=== PATIENT | male | born 1945 | race Caucasian/White ===

== ENCOUNTER 2023-07-28 07:27 | Outpatient (OUT) | payer MEDICARE, SELFPAY ==
--- NOTE | 2023-07-28 07:42 | XR_ITS ---
The [address] [address] Patient Name: CHRIS HERNANDEZ MRN: [id number] date: 1945 Sex: M Assigned Patient Location: [facility] Current Patient Location: [facility] Accession/Order Number: [id number] Exam Date: 07/28/2023 09:07 Report Date: 07/28/2023 09:38 At the request of: JANETT QUINN Procedure: XR chest 2V PROCEDURE: XR chest 2V DATE: 07/28/2023 8:07 AM [employer] COMPARISONS: None. CLINICAL INDICATION: 77 years Male Preop exam FINDINGS: The cardiomediastinal silhouette and pulmonary vasculature are within normal limits. The lungs are clear. There is no evidence of pleural effusion or pneumothorax. XR/XR chest 2V IMPRESSION: Chest radiograph is within normal limits. Electronically authenticated by: SANDY OTOOLE Date: 07/28/2023 09:38
--- NOTE | 2023-07-28 08:53 | PM.PRESUREVA ---
History of Present Illness History of Present Illness Chief complaint: right eustachian tube dysfunction Narrative: Patient presents for preadmission testing. 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 He denies ear drainage, pain, sore throat, epistaxis, or any other complaints. Review of Systems ROS Narrative REVIEW OF SYSTEMS: Negative except as stated in HPI, ten or more systems reviewed. Constitutional: No fever , chills, weakness ENT: No sore throat or epistaxis Cardiovascular: No edema, chest pain, palpitations, or activity intolerance Respiratory: No shortness of breath, cough, or wheezing Musculoskeletal: No joint pain or swelling Gastrointestinal: No abdominal pain, constipation, diarrhea, or vomiting Genitourinary: No dysuria or hematuria Neurological: No numbness, tingling, weakness, or headache Psychiatric: No mood changes [facility] Medical History (Updated 07/28/23 @ 08:40 by Tuyet Soto NP) Depression ?F32.A - Depression, unspecified (ICD-10) Sleep apnea ?G47.30 - Sleep apnea, unspecified (ICD-10) Kidney stones ?N20.0 - Calculus of kidney (ICD-10) GERD (gastroesophageal reflux disease) ?K21.9 - Gastro-esophageal reflux disease without esophagitis (ICD-10) Coronary artery disease ?I25.10 - Atherosclerotic heart disease of [place] coronary artery without angina pectoris (ICD-10) High cholesterol ?E78.00 - Pure hypercholesterolemia, unspecified (ICD-10) Hypertension ?I10 - Essential (primary) hypertension (ICD-10) Tinnitus ?H93.19 - Tinnitus, unspecified ear (ICD-10) Chronic kidney disease ?N18.9 - Chronic kidney disease, unspecified (ICD-10) Spinal stenosis ?M48.00 - Spinal stenosis, site unspecified (ICD-10) Arthritis of knee ?M17.10 - Unilateral primary osteoarthritis, unspecified knee (ICD-10) Ischemic cardiomyopathy ?I25.5 - Ischemic cardiomyopathy (ICD-10) STEMI (ST elevation myocardial infarction) ?I21.3 - ST elevation (STEMI) myocardial infarction of unspecified site (ICD-10) Colon polyp ?K63.5 - Polyp of colon (ICD-10) Epididymal cyst ?N50.3 - Cyst of epididymis (ICD-10) Chronic pain ?G89.29 - Other chronic pain (ICD-10) BPH with obstruction/lower urinary tract symptoms ?N40.1 - Benign prostatic hyperplasia with lower urinary tract symptoms (ICD-10) ?N13.8 - Other obstructive and reflux uropathy (ICD-10) Ascending aorta dilation ?I77.810 - Thoracic aortic ectasia (ICD-10) Dysfunction of right eustachian tube ?H69.91 - Unspecified Eustachian tube disorder, right ear (ICD-10) S/P extracorporeal shock wave therapy ?Z98.890 - Other specified postprocedural states (ICD-10) Surgical History (Updated 07/28/23 @ 08:40 by Tuyet Soto NP) H/O local excision of skin lesion ?Z98.890 - Other specified postprocedural states (ICD-10) History of spinal surgery ?Z98.890 - Other specified postprocedural states (ICD-10) S/P epidural steroid injection ?Z92.241 - Personal history of systemic steroid therapy (ICD-10) History of vasectomy ?Z98.52 - Vasectomy status (ICD-10) History of arthroplasty of knee ?Z96.659 - Presence of unspecified artificial knee joint (ICD-10) History of arthroplasty of knee ?Z96.659 - Presence of unspecified artificial knee joint (ICD-10) History of colonoscopy ?Z98.890 - Other specified postprocedural states (ICD-10) History of tonsillectomy and adenoidectomy ?Z90.89 - Acquired absence of other organs (ICD-10) History of heart artery stent ?Z95.5 - Presence of coronary angioplasty implant and graft (ICD-10) History of cardiac catheterization ?Z98.890 - Other specified postprocedural states (ICD-10) H/O uvulectomy ?Z90.89 - Acquired absence of other organs (ICD-10) Family History (Updated 07/28/23 @ 08:40 by Tuyet Soto NP) Other Family history of heart disease Family history of myocardial infarction Family history of skin cancer Heart failure Social History (Updated 07/28/23 @ 08:28 by Tuyet Soto NP) Within the past year, how often did you have a drink containing alcohol: never Score interpretation: A score less than 4 is consistent with normal alcohol consumption. Smoking status: Former smoker Highest level of school completed/degree received: high school graduate Meds Home Medications and Allergies Home Medications Medication Instructions Recorded Confirmed Type atorvastatin 80 mg tablet 80 mg PO DAILY 07/28/23 07/28/23 History calcitriol 0.25 mcg capsule 0.25 mcg PO DAILY 07/28/23 07/28/23 History famotidine 40 mg tablet 20 mg PO QPM PRN heartburn 07/28/23 07/28/23 History fluticasone propionate 50 1 spray intranasal DAILY 07/28/23 07/28/23 History mcg/actuation nasal spray,suspension isosorbide mononitrate 30 mg 30 mg PO DAILY 07/28/23 07/28/23 History tablet,extended release 24 hr losartan 100 mg tablet 100 mg PO DAILY 07/28/23 07/28/23 History metoprolol succinate 25 mg 25 mg PO DAILY 07/28/23 07/28/23 History tablet,extended release 24 hr nitroglycerin 0.4 mg sublingual 0.4 mg sublingual Q5M 07/28/23 07/28/23 History tablet (Nitrostat) sertraline 25 mg tablet 25 mg PO DAILY 07/28/23 07/28/23 History spironolactone 25 mg tablet 25 mg PO DAILY 07/28/23 07/28/23 History ticagrelor 90 mg tablet (Brilinta) 90 mg PO Q12H 07/28/23 07/28/23 History Allergies Allergy/AdvReac Type Severity Reaction Status Date / Time Iodinated Contrast Media AdvReac kidney Verified 07/28/23 08:24 failure Exam Narrative Exam Narrative: Constitutional: Awake, alert, comfortable, well-appearing, nontoxic, interactive, vital signs as charted Head: Normocephalic, atraumatic Eyes: Conjunctiva and lids normal to inspection, pupils normal ENT: Right tympanic membrane effusion, left tympanic membrane normal, naris patent, posterior oropharynx clear, oral mucosa moist Neck: Supple, normal appearance, normal range of motion, no meningeal signs, no lymphadenopathy Respiratory: No respiratory distress, breath sounds clear Cardiovascular: Regular rate and rhythm, strong and regular heart tones Musculoskeletal: Normal gait, no swelling or edema Skin: No rashes or induration, no lesions, only visible skin inspected Neuro: No neurological deficits, normal sensation Psychiatric: Oriented ?3, normal affect Assessment and Plan Assessment and Plan (1) Dysfunction of right eustachian tube: Plan Right myringotomy and insertion of ventilation tube, T-tube, nasal endoscopy with possible biopsy scheduled with Dr. Herrera 08/09/2023.
[2023-07-28 09:23] LABS: Basophils Percent Auto 0.5 % (0.2-2.0); Eosinophils Absolute Auto 0.1 10^3/uL (0.0-0.7); Eosinophils Percent Auto 1.6 % (0.9-7.0); Hematocrit 36.3 % (42.0-54.0); Hemoglobin 12.3 g/dL (14.0-18.0); Immature Granulocytes Abs Auto 0.03 10^3/uL (0.00-0.03); Immature Granulocytes Pct Auto 0.5 % (0.0-0.5); Lymphocytes Absolute Auto 0.5 10^3/uL (1.2-3.8); Lymphocytes Percent Auto 9.1 % (20.5-60.0); Mean Corpuscular HGB Conc 33.9 g/dL (29.9-35.2); Mean Corpuscular Hemoglobin 33.8 pg (25.9-34.0); Mean Corpuscular Volume 99.7 fL (80.0-94.0); Mean Platelet Volume 10.8 fL (9.5-13.5); Monocytes Absolute Auto 0.4 10^3/uL (0.3-0.8); Monocytes Percent Auto 7.5 % (1.7-12.0); Neutrophils Absolute Auto 4.6 10^3/uL (1.4-6.5); Neutrophils Percent Auto 80.8 % (43.0-75.0); Platelet Count 129 10^3/uL (150-450); Red Blood Count 3.64 10^6/uL (4.70-6.10); Red Cell Distribution Width 13.1 % (11.0-15.0); White Blood Count 5.7 10^3/uL (4.0-11.0)
[2023-07-28 09:30] LABS: Anion Gap 10.5; BUN Creatinine Ratio 11.7; Calcium 9.6 mg/dL (8.5-10.1); Carbon Dioxide 30.2 mmol/L (21.0-32.0); Chloride 105 mmol/L (98-107); Estimated GFR (African America 45 (>=60); Estimated GFR (Non-African Ame 37 (>=60); Glucose 103 mg/dL (74-106); Potassium 4.7 mmol/L (3.5-5.1); Sodium 141 mmol/L (136-145)
[2023-07-28 09:48] LABS: INR 0.97; Partial Thromboplastin Time 25.4 sec (22.3-36.2); Prothrombin Time 10.3 sec (9.0-11.6)
== END 2023-07-28 07:28 | disposition home or self-care (01) ==
LOC: PST 07:27
PROVIDERS: PCP Internal Medicine; Visit Provider Otolaryngology
DX: Z01.810 Encounter for preprocedural cardiovascular examination (principal); Z01.812 Encounter for preprocedural laboratory examination; Z01.818 Encounter for other preprocedural examination; H69.91 Unspecified Eustachian tube disorder, right ear
CPT/HCPCS: 71046; 80048; 85025; 85610; 85730; G0463

== ENCOUNTER 2023-08-09 07:15 | Day surgery (SDC) | payer MEDICARE, SELFPAY ==
[2023-07-28 08:51] VITALS: BP 130/72; PULSE 67; RESP 18; TEMP 36.2; O2SAT 98; BMI 35.1
[2023-08-09] VITALS (8 sets, daily range): BP systolic 95–130; BP diastolic 62–73; PULSE 55–62; RESP 10–20; TEMP 36.1–36.4; O2SAT 93–97; BMI 35.8
--- NOTE | 2023-08-09 | OP_ITS ---
OPERATION DATE: 08/09/2023 SURGEON: Sonal Herrera M.D. PREOPERATIVE DIAGNOSIS: Right eustachian tube dysfunction and otitis media with effusion. POSTOPERATIVE DIAGNOSIS: Right eustachian tube dysfunction and otitis media with effusion. PROCEDURE: Right myringotomy and tube with microdissection, placement of a T- tube and a nasal endoscopy. ANESTHESIA: General. COMPLICATIONS: None. FINDINGS: Right serous effusion and no nasopharyngeal path on endoscopy. INDICATIONS: This 69-year-old man presented with right otitis media with effusion, unresponsive to medical management. PROCEDURE: Patient identified in the holding area and taken back to the OR where he was placed in the supine position. After induction of general anesthesia, Afrin soaked pledgets were placed in each side of the nose. Attention was then turned to the right ear. The ear was approached with the otomicroscope. An anterior radial myringotomy was performed and a modified Marco?s T-tube was folded, inserted through the myringotomy and opened in the middle using microdissection. Then a 0 degree nasal endoscopic was used to examine the right nose. The scope was passed into the nasopharynx, and there was no abnormality evident. Patient was then awakened and taken to the recovery room in good condition. JOSE
--- OUTSIDE RECORDS SUMMARY | 2023-08-09 07:18 | XMS_ITS | CCD ---
Author Name Unknown Address [address] [facility] [address] [place] [address] Organization [facility] Care Team Providers Care Animal Technician Name Role Phone MAURICE, DR PEREZ Admitting Unavailable YUHAS, DR PEREZ Attending Unavailable YUHAS, DR PEREZ Primary Care Unavailable YUHAS, DR PEREZ Attending Unavailable YUHAS, DR PEREZ Primary Care Unavailable YUHAS, DR PEREZ Admitting Unavailable Yuhas Chris MARSHALL Primary Care Provider [phone] ROLAN MIDDLETON Attending Unavailable JANETT QUINN Attending Unavailable NILESHHACHRIS Penn Attending Unavailable NILESHHASCHRIS Referring Unavailable YUHAS, CHRIS Machado Primary Care Unavailable CHANTELLE REYES Attending Unavailable NILESHHASCHRIS Referring Unavailable YUHAS, CHRIS Machado Primary Care Unavailable YUHAS, CHRIS Machado Primary Care Unavailable YUHAS, CHRIS Mahcado Referring Unavailable YUHAS, CHRIS Machado Primary Care Unavailable TIMOTHY SANCHEZ Attending Unavailable TIMOTHY SANCHEZ Referring Unavailable YUHAS, CHRIS Machado Primary Care Unavailable TIMOTHY SANCHEZ Admitting Unavailable TIMOTHY SANCHEZ Attending Unavailable YUHASCHRIS Referring Unavailable YUHAS, CHRIS Machado Primary Care Unavailable TIMOTHY SANCHEZ Attending Unavailable TIMOTHY SANCHEZ Referring Unavailable YUHAS, CHRIS Machado Primary Care Unavailable TIMOTHY SANCHEZ Admitting Unavailable TIMOTHY SANCHEZ Attending Unavailable YUDOMENICASCHRIS Referring Unavailable YUHAS, CHRIS Machado Primary Care Unavailable BERONICA CAMPBELL Attending Unavailable TOÑOS, CHRIS Machado Referring Unavailable YUHAS, CHRIS Machado Primary Care Unavailable CHANTELLE REYES Attending Unavailable NILESHHASCHRIS Referring Unavailable YUHAS, CHRIS Machado Primary Care Unavailable BERONICA CAMPBELL Referring Unavailable YUHASCHRIS Primary Care Unavailable Medications Current Medications Medication Drug Class(es) Dates Sig (Normalized) Sig (Original) atorvastatin 80 mg oral tablet (8 sources) HMG-CoA Reductase Inhibitor Start: 3 atorvastatin (LIPITOR) 80 mg tablet Indications: Hyperlipidemia, unspecified hyperlipidemia type TAKE 1 TABLET NIGHTLY 90 tablet 1 03/29/2023 Active calcitriol 0.62506 mg oral capsule (9 sources) Vitamin D3 Analog Start: 3 End: 4 calcitrioL (ROCALTROL) 0.25 MCG capsule Indications: Stage 3b chronic kidney disease (CMS-HCC) TAKE 1 CAPSULE EVERY MORNING 90 capsule 1 07/11/2023 Active clobetasol propionate 0.5 mg/ml topical cream (8 sources) Corticosteroid clobetasoL (TEMOVATE) 0.05 % cream 1 Application. 0 Active famotidine 40 mg oral tablet (9 sources) Histamine-2 Receptor Antagonist Start: 4 take 0.5 tablet by mouth once daily as needed for gastroesophageal reflux disease famotidine (PEPCID) 40 mg tablet Indications: Gastroesophageal reflux disease without esophagitis Take 0.5 tablets (20 mg total) by mouth nightly as needed for heartburn. 0 06/21/2023 Active Start: 11-27-2022 End: 06-21-2023 famotidine (PEPCID) 40 mg ta blet Indications: Gastroesophageal reflux disease without esophagitis TAKE 1 TABLET IN THE MORNING 90 tablet 1 11/27/2022 06/21/2023 Discontinued fluticasone propionate 0.05 mg/actuat metered dose nasal spray (8 sources) Corticosteroid Start: 05-18-2023 take 1 spray(s) nasal route in the morning fluticasone propionate (FLONASE) 50 mcg/actuation nasal spray Indications: Chronic rhinitis SPRAY 1 SPRAY INTO EACH NOSTRIL IN THE MORNING 16 mL 2 05/18/2023 Active 24 hr isosorbide mononitrate 30 mg extended release oral tablet (8 sources) Nitrate Vasodilator Start: 03-29-2023 isosorbide mononitrate (IMDUR) 30 mg 24 hr tablet Indications: Multiple vessel coronary artery disease TAKE 1 TABLET DAILY 90 tablet 1 03/29/2023 Active losartan potassium 100 mg oral tablet (9 sources) Angiotensin 2 Receptor Joseph Start: 07-26-2022 End: 07-11-2023 losartan (COZAAR) 100 mg tablet Indications: Essential hypertension TAKE 1 TABLET EVERY MORNING 90 tablet 1 07/11/2023 Active 24 hr metoprolol succinate 25 mg extended release oral tablet (8 sources) beta-Adrenergic Joseph Start: 03-29-2023 metoprolol succinate XL (TOPROL XL) 25 mg 24 hr tablet Indications: Multiple vessel coronary artery disease TAKE 1 TABLET EVERY MORNING 90 tablet 1 03/29/2023 Active nitroglycerin 0.4 mg sublingual tablet (8 sources) Nitrate Vasodilator nitroglyceri n (NITROSTAT) 0.4 MG SL tablet sertraline 25 mg oral tablet (8 sources) Serotonin Reuptake Inhibitor Start: 05-17-2023 take 1 tablet by mouth in the morning sertraline (ZOLOFT) 25 mg tablet Indications: Depression with anxiety TAKE 1 TABLET (25 MG TOTAL) BY MOUTH IN THE MORNING 90 tablet 0 05/17/2023 Active spironolactone 25 mg oral tablet (8 sources) Aldosterone Antagonist Start: 03-29-2023 spironolactone (ALDACTONE) 25 mg tablet Indications: Ischemic cardiomyopathy TAKE 1 TABLET EVERY MORNING 90 tablet 1 03/29/2023 Active ticagrelor 90 mg oral tablet (9 sources) Start: 11-27-2022 End: 06-12-2023 BRILINTA 90 mg tablet Indications: Multiple vessel coronary artery disease TAKE 1 TABLET EVERY 12 HOURS 180 tablet 1 06/12/2023 Active Problems Active Problems Problem Classification Problem Date Documented Date Episodic/Chronic Aortic; peripheral; and visceral artery aneurysms (12 sources) Ascending aorta dilatation; Translations: [Thoracic aortic ectasia] Onset: 03-15-2021 03-15-2021 Chronic Chronic kidney disease (10 sources) Chronic kidney disease stage 3; Translations: [Stage 3 chronic kidney disease] Onset: 01-24-2020 03-24-2022 Chronic Chronic kidney disease (1 source) Chronic kidney disease; Translations: [Chronic kidney disease, stage 3b] Onset: 06-21-2023 Coronary atherosclerosis and other heart disease (20 sources) History of acute ST segment elevation myocardial infarction; Translations: [Old myocardial infarction] Onset: 02-10-2021 03-15-2021 Chronic Disorders of lipid metabolism (8 sources) Hyperlipidemia; Translations: [Hyperlipidemia, unspecified] Onset: 03-24-2022 03-24-2022 Chronic Esophageal disorders (10 sources) Gastroesophageal reflux disease without esophagitis; Translations: [Gastro-esophageal reflux disease without esophagitis] Onset: 11-12-2021 03-24-2022 Chronic Essential hypertension (13 sources) Essential hypertension; Translations: [Essential (primary) hypertension] Onset: 03-24-2022 03-24-2022 Chronic Hyperplasia of prostate (8 sources) Benign prostatic hypertrophy with outflow obstruction; Translations: [Benign prostatic hyperplasia with lower urinary tract symptoms] Onset: 02-10-2021 03-24-2022 Chronic Mood disorders (8 sources) Depressive disorder; Translations: [Depressive disorder] Onset: 03-24-2022 03-24-2022 Chronic Osteoarthritis (16 sources) Osteoarthritis of right knee joint; Translations: [Unilateral primary osteoarthritis, right knee] Onset: 03-02-2017 03-02-2017 Chronic Other nutritional; endocrine; and metabolic disorders (8 sources) Body mass index 30+ - obesity; Translations: [Obesity, unspecified] Onset: 03-16-2021 03-16-2021 Chronic Other nutritional; endocrine; and metabolic disorders (9 sources) Morbid obesity; Translations: [Morbid (severe) obesity due to excess calories] Onset: 02-25-2023 02-25-2023 Chronic Other nutritional; endocrine; and metabolic disorders (1 source) Morbid (severe) obesity due to excess calories; Translations: [Morbid (severe) obesity due to excess calories] Onset: 02-25-2023 Chronic Residual codes; unclassified (4 sources) Obstructive sleep apnea (adult) (pediatric); Translations: [OBSTRUCTIVE SLEEP APNEA] Onset: 10-07-2021 Chronic Residual codes; unclassified (8 sources) Obstructive sleep apnea syndrome; Translations: [Obstructive sleep apnea (adult) (pediatric)] Onset: 03-24-2022 03-24-2022 Chronic Spondylosis; intervertebral disc disorders; other back problems (2 sources) Lumbosacral spondylosis without myelopathy; Translations: [Spondylosis without myelopathy or radiculopathy, lumbosacral region] Onset: 07-07-2023 07-07-2023 Chronic Spondylosis; intervertebral disc disorders; other back problems (20 sources) Disorder of sacrum; Translations: [Sacrococcygeal disorders, not elsewhere classified] Onset: 04-05-2023 06-02-2023 Episodic Unclassified (1 source) Pre-op Exam Onset: 07-04-2023 Unclassified (1 source) error Onset: 06-02-2023 Past or Other Problems Problem Classification Problem Date Documented Da te Episodic/Chronic Acute myocardial infarction (16 sources) Acute ST segment elevation myocardial infarction of inferior wall; Translations: [ST elevation (STEMI) myocardial infarction involving other coronary artery of inferior wall] Onset: 11-26-2020 Resolved: 03-24-2022 03-24-2022 Chronic Coronary atherosclerosis and other heart disease (1 source) Presence of coronary angioplasty implant and graft; Translations: [Presence of coronary angioplasty implant and graft] Onset: 03-15-2021 Episodic Diabetes mellitus without complication (8 sources) Impaired fasting glycemia; Translations: [Impaired fasting glucose] Onset: 03-16-2016 03-24-2022 Episodic Mood disorders (8 sources) Mood disorders Onset: 03-22-2023 Resolved: 06-21-2023 03-22-2023 Other and unspecified benign neoplasm (8 sources) History of polyp of colon; Translations: [Personal history of colonic polyps] Onset: 02-02-2018 04-05-2018 Episodic Other male genital disorders (8 sources) Cyst of epididymis; Translations: [Cyst of epididymis] Onset: 06-08-2019 05-13-2020 Episodic Other male genital disorders (8 sources) Cyst of testis; Translations: [Benign cyst of testis] Onset: 06-08-2019 06-08-2019 Episodic Results Test Name Value Interpretation Reference Range Facility POCT EKGon 07-04-2023 [facility] COMPREHENSIVE METABOLIC PANE Paul 06-15-2023 Albumin [Mass/Vol] 4.2 g/dL Normal 3.2-5.3 [facility] Comment on above: Performed By: #### Nicole TERRY, 22364-6 #### [facility] ([id number]) [address] [place] [address] ALP [Catalytic activity/Vol] 91 U/L Normal 39-130 [facility] Comment on above: Performed By: #### iNcole TERRY, 51019-7 #### [facility] ([id number]) [address], [address] [place] [address] ALT [Catalytic activity/Vol] 18 U/L Normal 0-40 [facility] Comment on above: Performed By: #### Nicole TERRY, 71561-0 #### [facility] ([id number]) [address], [address] [place] [address] Anion gap [Moles/Vol] 9 mmol/L Normal 5-15 [facility] Comment on above: Performed By: #### Nicole TERRY, 07754-6 #### [facility] ([id number]) [address], [address] [place] [address] AST [Catalytic activity/Vol] 17 U/L Normal 0-41 [facility] Comment on above: Performed By: #### Nicole TERRY, 77069-0 #### [facility] ([id number]) [address], [address] [place] [address] Bilirubin [Mass/Vol] 1.1 mg/dL Normal 0.3-1.2 [facility] Comment on above: Performed By: #### Nicole TERRY 65627-1 #### [facility] ([id number]) [address], [address] [place] [address] Calcium [Mass/Vol] 9.9 mg/dL Normal 8.5-10.5 [facility] Comment on above: Performed By: #### Nicole TERRY, 33486-1 #### [facility] ([id number]) [address], [address] [place] [address] Chloride [Moles/Vol] 107 mmol/L Normal 98-109 [facility] Comment on above: Performed By: #### Nicole TERRY 36796-9 #### [facility] ([id number]) [address], [address] [place] [address] CO2 [Moles/Vol] 25 mmol/L Normal 22-32 [facility] Comment on above: Performed By: #### Nicole TERRY, 69858-9 #### [facility] ([id number]) [address], [address] [place] [address] Creatinine [Mass/Vol] 1.68 mg/dL High 0.60-1.30 [facility] Comment on above: Result Comment: METH OD TRACEABLE TO IDMS STANDARD Performed By: #### C HRARISON, 83422-6 #### [facility] ([id number]) [address], [address] [place] [address] GFR/1.73 sq M.predicted among non-blacks MDRD (S/P/Bld) [Vol rate/Area] 41 mL/min/{1.73_m2} Low >59 [facility] Comment on above: Result Comment: Reported eGFR is based on the CKD-EPI 2020 equation that does not use a race coefficient. Performed By: #### C HARRISON, 53198-7 #### [facility] ([id number]) [address], [address] [place] [address] Glucose [Mass/Vol] 114 mg/dL High 65-99 [facility] Comment on above: Performed By: #### Nicole TERRY, 14625-0 #### [facility] ([id number]) [address] [place] [address] Potassium [Moles/Vol] 3.8 mmol/L Normal 3.5-5.0 [facility] Comment on above: Performed By: #### Nicole TERRY, 32345-8 #### [facility] ([id number]) [address] [place] [address] Protein [Mass/Vol] 7.0 g/dL Normal 6.0-8.0 [facility] Comment on above: Performed By: #### Nicole TERRY, 49408-9 #### [facility] ([id number]) [address], [address] [place] [address] Sodium [Moles/Vol] 141 mmol/L Normal 134-146 [facility] Comment on above: Performed By: #### Nicole TERRY, 84756-2 #### [facility] ([id number]) [address], [address] [place] [address] Urea nitrogen [Mass/Vol] 21 mg/dL Normal 5-27 [facility] Comment on above: Performed By: #### Nicole TERRY, 93502-3 #### [facility] ([id number]) [address], [address] [place] [address] Lipid 1996 panelon 4 Cholesterol [Mass/Vol] 103 mg/dL Low 150-200 [facility] Comment on above: Performed By: #### Nicole TERRY, 35417-3 #### [facility] ([id number]) [address], [address] [place] [address] Cholesterol in HDL [Mass/Vol] 32 mg/dL Low >39 [facility] Comment on above: Result Comment: HDL <40 mg/dL - High Risk HDL > or = 40mg/dL- Desirable HDL >60 mg/dL - Negative Risk Performed By: #### Nicole TERRY, 97719-9 #### [facility] ([id number]) [address], [address] [place] [address] Cholesterol in LDL [Mass/Vol] 23 mg/dL Normal <130 [facility] Comment on above: Result Comment: LDL <100 mg/dL - Desirable LDL >160 mg/dL - High Risk Performed By: #### Nicole TERRY, 97773-9 #### [facility] ([id number]) [address], [address] [place] [address] Cholesterol in VLDL [Mass/Vol] 48 mg/dL High 0-30 [facility] Comment on above: Performed By: #### C HARRISON, 12392-2 #### [facility] ([id number]) [address], [address] [place] [address] CHOLESTEROL:HDL 3.2 Normal 1.0-5.0 [facility] Comment on above: Performed By: #### C HARRISON, 09848-5 #### [facility] ([id number]) [address], [address] [place] [address] Triglyceride [Mass/Vol] 240 mg/dL High 27-150 [facility] Comment on above: Performed By: #### C HARRISON, 26925-8 #### [facility] ([id number]) [address], [address] [place] [address] US Renal/Bladderon 2 US Renal/Bladder FINDINGS: Right Yghlgv60.3 x 5.7 x 6.6 cm Left Qeskzy56.9 x 6.0 x 5.4 cm Full bladder volume: 223 cc Post-void bladder volume: 15 cc Normal renal size, cortical volume and echotexture is present for this age. No collecting system dilatation or echogenic foci with posterior shadowing are noted. No echogenic foci or suspicious mass lesions, or wall thickening is present within the bladder. Bilateral ureteral jets are identified. 15 cc post-void residual. IMPRESSION: 1. Normal renal cortical volume, relatively normal echotexture, no evidence of obstruction 2. No bladder stone or mass, 15 cc post-void residual Report reported and signed by Alfonso Self on 12/03/2021 1015 Normal [facility] Dolphin Trainer BASIC METABOLIC PANELon 10-28 Calcium [Mass/Vol] 9.9 mg/dL Normal 8.6-10.3 [facility] Comment on above: Performed By: #### 1 0231, 718, 7600, 1005, 54689, 5363, 47670, 6399 #### [facility] [address], [address] [place] [id number] Boxing Instructor: Bang Spring MD Chloride [Moles/Vol] 106 mmol/L Normal 98-110 [facility] Comment on above: Performed By: #### 1 0231, 718, 7600, 1005, 48841, 5363, 39647, 6399 #### [facility] [address], [address] [place] [address] Boxing Instructor: Bang Spring MD CO2 [Moles/Vol] 28 mmol/L Normal 20-32 [facility] Comment on above: Performed By: #### 1 0231, 718, 7600, 1005, 75905, 5363, 91618, 6399 #### [facility] [place] [address] Boxing Instructor: Bang Spring MD Creatinine [Mass/Vol] 1.63 mg/dL High 0.70-1.[address] [facility] Comment on above: Result Comment: For patients >49 years of age, the reference limit for Creatinine is approximately 13% higher for people identified as -[place]. Performed By: #### 1 0231, 718, 7600, 1005, 55038, 5363, 03589, 6399 #### [facility] [place] [address] Boxing Instructor: Bang Spring MD eGFR NON-AFR. KOSOVAN 40 mL/min/1.73m2 Low > OR = 60 [facility] Comment on above: Performed By: #### 1 0231, 718, 7600, 1005, 43362, 5363, 41629, 6399 #### [facility] [address], [address] [place] [address] Boxing Instructor: Bang Spring MD GFR/1.73 sq M.predicted among blacks MDRD (S/P/Bld) [Vol rate/Area] 47 mL/min/{1.73_m2} Low > OR = 60 [facility] Comment on above: Performed By: #### 1 0231, 718, 7600, 1005, 11242, 5363, 59029, 6399 #### [facility] [place] [address] [address] Boxing Instructor: Bang Spring MD Glucose [Mass/Vol] 98 mg/dL Normal 65-99 [facility] Comment on above: Result Comment: Fasting reference interval Performed By: #### 1 0231, 718, 7600, 1005, 67776, 5363, 34542, 6399 #### [facility] [place] [address] Boxing Instructor: Bang Spring MD Potassium [Moles/Vol] 4.7 mmol/L Normal 3.5-5.3 [facility] Comment on above: Performed By: #### 1 0231, 718, 7600, 1005, 94446, 5363, 62707, 6399 #### [facility] [place] [address] Boxing Instructor: Bang Spring MD Sodium [Moles/Vol] 140 mmol/L Normal 135-146 [facility] Comment on above: Performed By: #### 1 0231, 718, 7600, 1005, 98767, 5363, 71379, 6399 #### [facility] [place] [address] Boxing Instructor: Bang Spring MD Urea nitrogen [Mass/Vol] 19 mg/dL Normal 7-25 [facility] Comment on above: Performed By: #### 1 0231, 718, 7600, 1005, 42768, 5363, 55684, 6399 #### [facility] [place] [address] Boxing Instructor: Bang Spring MD Urea nitrogen/Creatinine [Mass ratio] 12 mg/mg Normal 6-22 [facility] Comment on above: Performed By: #### 1 0231, 718, 7600, 1005, 84533, 5363, 24765, 6399 #### [facility] [place] [address] Boxing Instructor: Bang Spring MD CBC (INCLUDES DIFF/PLT)on 06 -14-2022 Basophils (Bld) [#/Vol] 0.038 10*3/uL Normal 0-200 [facility] Comment on above: Performed By: #### 1 0231, 718, 7600, 1005, 42210, 5363, 34898, 6399 #### [facility] [place] [address] Boxing Instructor: Bang Spring MD Basophils/100 WBC (Bld) 0.7 % Normal [facility] Comment on above: Performed By: #### 1 0231, 718, 7600, 1005, 48772, 5363, 71039, 6399 #### [facility] [place] [address] Boxing Instructor: Bang Spring MD Eosinophils (Bld) [#/Vol] 0.151 10*3/uL Normal 15-500 [facility] Comment on above: Performed By: #### 1 0231, 718, 7600, 1005, 18033, 5363, 49994, 6399 #### [facility] [place] [address] Boxing Instructor: Bang Spring MD Eosinophils/100 WBC (Bld) 2.8 % Normal [facility] Comment on above: Performed By: #### 1 0231, 718, 7600, 1005, 43777, 5363, 38228, 6399 #### [facility] [place] [address] Boxing Instructor: aBng Spring MD Erythrocyte distribution width (RBC) [Ratio] 13.0 % Normal 11.0-15.0 [facility] Comment on above: Performed By: #### 1 0231, 718, 7600, 1005, 52160, 5363, 42965, 6399 #### [facility] [place] [address] Boxing Instructor: Bang Spring MD Hematocrit (Bld) [Volume fraction] 38.7 % Normal 38.5-50.0 [facility] Comment on above: Performed By: #### 1 0231, 718, 7600, 1005, 57845, 5363, 75681, 6399 #### [facility] [place] [address] Boxing Instructor: Bang Spring MD Hemoglobin (Bld) [Mass/Vol] 13.2 g/dL Normal 13.2-17.1 [facility] Comment on above: Performed By: #### 1 0231, 718, 7600, 1005, 69124, 5363, 05623, 6399 #### [facility] [place] [address] Boxing Instructor: Bang Spring MD Lymphocytes (Bld) [#/Vol] 0.756 10*3/uL Low 850-3900 [facility] Comment on above: Performed By: #### 1 0231, 718, 7600, 1005, 29046, 5363, 95613, 6399 #### [facility] [place] [address] Boxing Instructor: Bang Spring MD Lymphocytes/100 WBC (Bld) 14.0 % Normal [facility] Comment on above: Performed By: #### 1 0231, 718, 7600, 1005, 89554, 5363, 07403, 6399 #### [facility] [place] [address] Boxing Instructor: Bang Spring MD MCH (RBC) [Entitic mass] 33.4 pg High 27.0-33.0 [facility] Comment on above: Performed By: #### 1 0231, 718, 7600, 1005, 87880, 5363, 79245, 6399 #### [facility] [place] [address] Boxing Instructor: Bang Spring MD MCHC (RBC) [Mass/Vol] 34.1 g/dL Normal 32.0-36.[address] [facility] Comment on above: Performed By: #### 1 0231, 718, 7600, 1005, 76480, 5363, 85683, 6399 #### [facility] of [address], [address] [place] [address] Boxing Instructor: Bang Spring MD MCV (RBC) [Entitic vol] 98.0 fL Normal 80.0-100.0 [facility] Comment on above: Performed By: #### 1 0231, 718, 7600, 1005, 56347, 5363, 12729, 6399 #### [facility] [place] [address] Boxing Instructor: Bang Spring MD Monocytes (Bld) [#/Vol] 0.491 10*3/uL Normal 200-950 [facility] Comment on above: Performed By: #### 1 0231, 718, 7600, 1005, 34909, 5363, 86790, 6399 #### [facility] [place] [address] Boxing Instructor: Bang Spring MD Monocytes/100 WBC (Bld) 9.1 % Normal [facility] Comment on above: Performed By: #### 1 0231, 718, 7600, 1005, 71367, 5363, 34523, 6399 #### [facility] [place] [address] Boxing Instructor: Bang Spring MD Neutrophils (Bld) [#/Vol] 3.964 10*3/uL Normal 8452-3872 [facility] Comment on above: Performed By: #### 1 0231, 718, 7600, 1005, 86028, 5363, 42163, 6399 #### [facility] [place] [address] Boxing Instructor: Bang Spring MD Neutrophils/100 WBC (Bld) 73.4 % Normal [facility] Comment on above: Performed By: #### 1 0231, 718, 7600, 1005, 56712, 5363, 94917, 6399 #### [facility] [place] [address] Boxing Instructor: Bang Spring MD Platelet mean volume (Bld) [Entitic vol] 10.3 fL Normal 7.5-12.5 [facility] Comment on above: Performed By: #### 1 0231, 718, 7600, 1005, 65420, 5363, 49818, 6399 #### [facility] [place] [address] Boxing Instructor: Bang Spring MD Platelets (Bld) [#/Vol] 164 10*3/uL Normal 140-400 [facility] Comment on above: Performed By: #### 1 0231, 718, 7600, 1005, 56991, 5363, 62348, 6399 #### [facility] [place] [address] Boxing Instructor: Bang Spring MD RBC (Bld) [#/Vol] 3.95 10*6/uL Low 4.20-5.80 [facility] Comment on above: Performed By: #### 1 0231, 718, 7600, 1005, 29945, 5363, 36842, 6399 #### [facility] [place] [address] Boxing Instructor: Bang Spring MD WBC (Bld) [#/Vol] 5.4 10*3/uL Normal 3.8-10.8 [facility] Comment on above: Performed By: #### 1 0231, 718, 7600, 1005, 96225, 5363, 86730, 6399 #### [facility] [place] [address] Boxing Instructor: Bang Spring MD PHOSPHATE ( PHOSPHORUS)on 11-10-2021 Phosphate [Mass/Vol] 3.8 mg/dL Normal 2.1-4.3 Ques t [facility] Comment on above: Order Comment: FASTI NG:YESFASTING: YES Performed By: #### 1 0231, 718, 7600, 1005, 02202, 5363, 29411, 6399 #### [facility] [place] [id number] Boxing Instructor: Bang Sprign MD PTH, INTACT WITHOUT CALCIUMo n 11-10-2021 PARATHYROID HORMONE, INTACT 52 pg/mL Normal 16-77 [facility] Comment on above: Result Comment: Interpretive Guide Intact PTH Calcium ------- Normal Parathyroid Normal Normal Hypoparathyroidism Low or Low Normal Low Hyperparathyroidism Primary Normal or High High Secondary High Normal or Low Tertiary High High Non-Parathyroid Hypercalcemia Low or Low Normal High Performed By: #### 1 0231, 718, 7600, 1005, 71398, 5363, 43227, 6399 #### [facility] [place] [id number] Boxing Instructor: Bang Spring MD VITAMIN D,25-OH,TOTAL,IAon 0 11-10-2021 VITAMIN D,25-OH,TOTAL,IA 34 ng/mL Normal 30-100 [facility] Comment on above: Result Comment: Dianna min D Status 25-OH Vitamin D: Deficiency: <20 ng/mL Insufficiency: 20 - 29 ng/mL Optimal: > or = 30 ng/mL For 25-OH Vitamin D testing on patients on D2-supplementation and patients for whom quantitation of D2 and D3 fractions is required, the [facility]ure[facility](TM) 25-OH VIT D, (D2,D3), LC/MS/MS is recommended: order code 84999 (patients >2yrs). See Note 1 Note 1 For additional information, please refer to http://education.[employer]/faq/EPG975 (This link is being provided for informational/ educational purposes only.) Performed By: #### 1 0231, 718, 7600, 1005, 66165, 5363, 95029, 6399 #### [facility] [place] [id number] Boxing Instructor: Bang Spring MD CBC (INCLUDES DIFF/PLT)on Basophils (Bld) [#/Vol] 0.05 10*3/uL Normal 0-200 [facility] Comment on above: Performed By: #### 1 0231, 718, 7600, 1005, 72286, 5363, 75370, 6399 #### [facility] [place] [address] Boxing Instructor: Bang Spring MD Basophils/100 WBC (Bld) 0.7 % Normal [facility] Comment on above: Performed By: #### 1 0231, 718, 7600, 1005, 14697, 5363, 05020, 6399 #### [facility] [place] [address] Boxing Instructor: Bang Spring MD COMMENT(S) Normal [facility] Comment on above: Result Comment: Revi ew of peripheral smear confirms automated results. Performed By: #### 1 0231, 718, 7600, 1005, 62475, 5363, 29316, 6399 #### [facility] [place] [address] Boxing Instructor: Bang Spring MD Eosinophils (Bld) [#/Vol] 0.149 10*3/uL Normal 15-500 [facility] Comment on above: Performed By: #### 1 0231, 718, 7600, 1005, 28417, 5363, 14904, 6399 #### [facility] [place] [address] Boxing Instructor: Bang Spring MD Eosinophils/100 WBC (Bld) 2.1 % Normal [facility] Comment on above: Performed By: #### 1 0231, 718, 7600, 1005, 46116, 5363, 47784, 6399 #### [facility] [place] [address] Boxing Instructor: Bang Spring MD Erythrocyte distribution width (RBC) [Ratio] 13.0 % Normal 11.0-15.0 [facility] Comment on above: Performed By: #### 1 0231, 718, 7600, 1005, 44641, 5363, 33548, 6399 #### [facility] [address], [address] [place] [address] Boxing Instructor: Bang Spring MD Hematocrit (Bld) [Volume fraction] 56.1 % High 38.5-50.0 [facility] Comment on above: Performed By: #### 1 0231, 718, 7600, 1005, 49693, 5363, 57038, 6399 #### [facility] [place] [address] Boxing Instructor: Bang Spring MD Hemoglobin (Bld) [Mass/Vol] 19.7 g/dL High 13.2-17.1 [facility] Comment on above: Result Comment: Veri fied by repeat analysis. Performed By: #### 1 0231, 718, 7600, 1005, 64571, 5363, 63713, 6399 #### [facility] [place] [address] Boxing Instructor: Bang Spring MD Lymphocytes (Bld) [#/Vol] 0.795 10*3/uL Low 850-3900 [facility] Comment on above: Performed By: #### 1 0231, 718, 7600, 1005, 35450, 5363, 83744, 6399 #### [facility] [place] [address] Boxing Instructor: Bang Spring MD Lymphocytes/100 WBC (Bld) 11.2 % Normal [facility] Comment on above: Performed By: #### 1 0231, 718, 7600, 1005, 27295, 5363, 65486, 6399 #### [facility] [place] [address] Boxing Instructor: Bang Spring MD MCH (RBC) [Entitic mass] 33.2 pg High 27.0-33.0 [facility] Comment on above: Performed By: #### 1 0231, 718, 7600, 1005, 01739, 5363, 48968, 6399 #### [facility] [place] [address] Boxing Instructor: Bang Spring MD MCHC (RBC) [Mass/Vol] 35.1 g/dL Normal 32.0-36.[address] [facility] Comment on above: Performed By: #### 1 0231, 718, 7600, 1005, 98154, 5363, 32641, 6399 #### [facility] [place] [address] Boxing Instructor: Bang Spring MD MCV (RBC) [Entitic vol] 94.6 fL Normal 80.0-100.0 [facility] Comment on above: Performed By: #### 1 0231, 718, 7600, 1005, 58139, 5363, 30438, 6399 #### [facility] [place] [address] Boxing Instructor: Bang Spring MD Monocytes (Bld) [#/Vol] 0.561 10*3/uL Normal 200-950 [facility] Comment on above: Performed By: #### 1 0231, 718, 7600, 1005, 66019, 5363, 93883, 6399 #### [facility] [place] [address] Boxing Instructor: Bang Spring MD Monocytes/100 WBC (Bld) 7.9 % Normal [facility] Comment on above: Performed By: #### 1 0231, 718, 7600, 1005, 04929, 5363, 57697, 6399 #### [facility] [place] [address] Boxing Instructor: Bang Spring MD Neutrophils (Bld) [#/Vol] 5.545 10*3/uL Normal 0304-3550 [facility] Comment on above: Performed By: #### 1 0231, 718, 7600, 1005, 21405, 5363, 19772, 6399 #### [facility] [place] [address] Boxing Instructor: Bang Spring MD Neutrophils/100 WBC (Bld) 78.1 % Normal [facility] Comment on above: Performed By: #### 1 0231, 718, 7600, 1005, 28161, 5363, 99255, 6399 #### [facility] [address], [address] [place] [address] Boxing Instructor: Bang Spring MD Platelet mean volume (Bld) [Entitic vol] 10.9 fL Normal 7.5-12.5 [facility] Comment on above: Performed By: #### 1 0231, 718, 7600, 1005, 17464, 5363, 20475, 6399 #### [facility] [place] [address] Boxing Instructor: Bang Spring MD Platelets (Bld) [#/Vol] 234 10*3/uL Normal 140-400 [facility] Comment on above: Performed By: #### 1 0231, 718, 7600, 1005, 85376, 5363, 62680, 6399 #### [facility] [address], [address] [place] [address] Boxing Instructor: Bang Spring MD RBC (Bld) [#/Vol] 5.93 10*6/uL High 4.20-5.80 [facility] Comment on above: Performed By: #### 1 0231, 718, 7600, 1005, 06183, 5363, 31552, 6399 #### [facility] [address], [address] [place] [address] Boxing Instructor: Bang Spring MD WBC (Bld) [#/Vol] 7.1 10*3/uL Normal 3.8-10.8 [facility] Comment on above: Performed By: #### 1 0231, 718, 7600, 1005, 56707, 5363, 83421, 6399 #### [facility] [address], [address] [place] [address] Boxing Instructor: Bang Spring MD COMPREHENSIVE METABOLIC PANE Paul 09-16-2021 Albumin [Mass/Vol] 4.4 g/dL Normal 3.6-5.1 [facility] Comment on above: Performed By: #### 1 0231, 718, 7600, 1005, 74453, 5363, 02962, 6399 #### [facility] [place] [address] Boxing Instructor: Bang Spring MD Albumin/Globulin [Mass ratio] 1.6 {ratio} Normal 1.0-2.5 [facility] Comment on above: Performed By: #### 1 0231, 718, 7600, 1005, 59086, 5363, 96102, 6399 #### [facility] [place] [address] Boxing Instructor: Bang Spring MD ALP [Catalytic activity/Vol] 82 U/L Normal 35-144 [facility] Comment on above: Performed By: #### 1 0231, 718, 7600, 1005, 11241, 5363, 19675, 6399 #### [facility] [place] [address] Boxing Instructor: Bang Spring MD ALT [Catalytic activity/Vol] 16 U/L Normal 9-46 [facility] Comment on above: Performed By: #### 1 0231, 718, 7600, 1005, 62668, 5363, 47845, 6399 #### [facility] [place] [address] Boxing Instructor: Bang Spring MD AST [Catalytic activity/Vol] 16 U/L Normal 10-35 [facility] Comment on above: Performed By: #### 1 0231, 718, 7600, 1005, 54019, 5363, 59458, 6399 #### [facility] [place] [address] Boxing Instructor: Bang Spring MD Bilirubin [Mass/Vol] 1.3 mg/dL High 0.2-1.2 Ques t [facility] Comment on above: Performed By: #### 1 0231, 718, 7600, 1005, 49870, 5363, 78064, 6399 #### [facility] [place] [address] Boxing Instructor: Bang Spring MD Calcium [Mass/Vol] 9.6 mg/dL Normal 8.6-10.3 [facility] Comment on above: Performed By: #### 1 0231, 718, 7600, 1005, 08662, 5363, 74654, 6399 #### [facility] [address], [address] [place] [address] Boxing Instructor: Bang Spring MD Chloride [Moles/Vol] 105 mmol/L Normal 98-110 Ques t [facility] Comment on above: Performed By: #### 1 0231, 718, 7600, 1005, 97720, 5363, 28468, 6399 #### [facility] [place] [address] Boxing Instructor: Bang Spring MD CO2 [Moles/Vol] 28 mmol/L Normal 20-32 [facility] Comment on above: Performed By: #### 1 0231, 718, 7600, 1005, 76886, 5363, 48620, 6399 #### [facility] [place] [address] Boxing Instructor: Bang Spring MD Creatinine [Mass/Vol] 1.54 mg/dL High 0.70-1.[address] [facility] Comment on above: Result Comment: For patients >49 years of age, the reference limit for Creatinine is approximately 13% higher for people identified as -[place]. Performed By: #### 1 0231, 718, 7600, 1005, 84153, 5363, 54797, 6399 #### [facility] [place] [address] Boxing Instructor: Bang Spring MD eGFR NON-AFR. KOSOVAN 43 mL/min/1.73m2 Low > OR = 60 [facility] Comment on above: Performed By: #### 1 0231, 718, 7600, 1005, 16332, 5363, 71802, 6399 #### [facility] [place] [address] Boxing Instructor: Bang Spring MD GFR/1.73 sq M.predicted among blacks MDRD (S/P/Bld) [Vol rate/Area] 50 mL/min/{1.73_m2} Low > OR = 60 [facility] Comment on above: Performed By: #### 1 0231, 718, 7600, 1005, 97002, 5363, 52565, 6399 #### [facility] [place] [address] Boxing Instructor: Bang Spring MD Globulin (S) [Mass/Vol] 2.8 g/dL Normal 1.9-3.7 [facility] Comment on above: Performed By: #### 1 0231, 718, 7600, 1005, 27395, 5363, 05005, 6399 #### [facility] [address], [address] [place] [address] Boxing Instructor: Bang Spring MD Glucose [Mass/Vol] 105 mg/dL High 65-99 [facility] Comment on above: Result Comment: Fasting reference interval For someone without known diabetes, a glucose value between 100 and 125 mg/dL is consistent with prediabetes and should be confirmed with a follow-up test. Performed By: #### 1 0231, 718, 7600, 1005, 23926, 5363, 28434, 6399 #### [facility] [address], [address] [place] [address] Boxing Instructor: Bang Spring MD Potassium [Moles/Vol] 3.9 mmol/L Normal 3.5-5.3 [facility] Comment on above: Performed By: #### 1 0231, 718, 7600, 1005, 28729, 5363, 87410, 6399 #### [facility] [address], [address] [place] [address] Boxing Instructor: Bang Spring MD Protein [Mass/Vol] 7.2 g/dL Normal 6.1-8.1 [facility] Comment on above: Performed By: #### 1 0231, 718, 7600, 1005, 88748, 5363, 33508, 6399 #### [facility] [address], [address] [place] [address] Boxing Instructor: Bang Spring MD Sodium [Moles/Vol] 139 mmol/L Normal 135-146 [facility] Comment on above: Performed By: #### 1 0231, 718, 7600, 1005, 45793, 5363, 11395, 6399 #### [facility] [address], [address] [place] [address] Boxing Instructor: Bang Spring MD Urea nitrogen [Mass/Vol] 19 mg/dL Normal 7-25 [facility] Comment on above: Performed By: #### 1 0231, 718, 7600, 1005, 78281, 5363, 49849, 6399 #### [facility] [address], [address] [place] [address] Boxing Instructor: Bang Spring MD Urea nitrogen/Creatinine [Mass ratio] 12 mg/mg Normal 6-22 [facility] Comment on above: Performed By: #### 1 0231, 718, 7600, 1005, 74371, 5363, 32498, 6399 #### [facility] [place] [address] Boxing Instructor: Bang Spring MD LIPID PANEL, [facility] [place] - Cholesterol [Mass/Vol] 114 mg/dL Normal <200 [facility] Comment on above: Order Comment: FASTI NG:YES FASTING: YES Performed By: #### 1 0231, 718, 7600, 1005, 25874, 5363, 56477, 6399 #### [facility] [address], [address] [place] [address] Boxing Instructor: Bang Spring MD Cholesterol in HDL [Mass/Vol] 38 mg/dL Low > OR = 40 [facility] Comment on above: Order Comment: FASTI NG:YES FASTING: YES Performed By: #### 1 0231, 718, 7600, 1005, 69996, 5363, 97985, 6399 #### [facility] [address], [address] [place] [address] Boxing Instructor: Bang Spring MD Cholesterol in LDL [Mass/Vol] 54 mg/dL Normal [facility] Comment on above: Order Comment: FASTI NG:YES FASTING: YES Result Comment: Refe rence range: <100 Desirable range <100 mg/dL for primary prevention; <70 mg/dL for patients with CHD or diabetic patients with > or = 2 CHD risk factors. LDL-C is now calculated using the Refugio calculation, which is a validated novel method providing better accuracy than the Friedewald equation in the estimation of LDL-C. Lv PEREZ et al. FARHANA. 2013;310(19): 6897-6650 (http://education.[employer].School [employer] Fashion/faq/OUW756) Performed By: #### 1 0231, 718, 7600, 1005, 14968, 5363, 59086, 6399 #### [facility] [address], [address] [place] [address] Boxing Instructor: Bang Spring MD Cholesterol.total/Cho lesterol in HDL [Mass ratio] 3.0 {ratio} Normal <5.0 [facility] Comment on above: Order Comment: FASTI NG:YES FASTING: YES Performed By: #### 1 0231, 718, 7600, 1005, 58689, 5363, 82125, 6399 #### [facility] [address], [address] [place], [place] [id number] Boxing Instructor: Bang Spring MD NON HDL CHOLESTEROL 76 mg/dL (calc) Normal <130 [facility] Comment on above: Order Comment: FASTI NG:YES FASTING: YES Result Comment: For patients with diabetes plus 1 major ASCVD risk factor, treating to a non-HDL-C goal of <100 mg/dL (LDL-C of <70 mg/dL) is considered a therapeutic option. Performed By: #### 1 0231, 718, 7600, 1005, 93392, 5363, 92695, 6399 #### [facility] [address], [address] [place] [address] Boxing Instructor: Bang Spring MD Triglyceride [Mass/Vol] 132 mg/dL Normal <150 [facility] Comment on above: Order Comment: FASTI NG:YES FASTING: YES Performed By: #### 1 0231, 718, 7600, 1005, 14002, 5363, 04816, 6399 #### [facility] [address], [address] [place] [address] Boxing Instructor: Bang Spring MD PHOSPHATE ( PHOSPHORUS)on 09-16-2021 Phosphate [Mass/Vol] 3.0 mg/dL Normal 2.1-4.3 [facility]ues t [facility] Comment on above: Performed By: #### 1 0231, 718, 7600, 1005, 11542, 5363, 43832, 6399 #### [facility] [address], [address] [place] [address] Boxing Instructor: Bang Spring MD PSA, TOTALon 09-16-2021 PSA, TOTAL 2.86 ng/mL Normal < OR = 4.00 [facility] Comment on above: Result Comment: The total PSA value from this assay system is standardized against the WHO standard. The test result will be approximately 20% lower when compared to the equimolar-standardized total PSA (Gokul Miguel). Comparison of serial PSA results should be interpreted with this fact in mind. This test was performed using the Siemens chemiluminescent method. Values obtained from different assay methods cannot be used interchangeably. PSA levels, regardless of value, should not be interpreted as absolute evidence of the presence or absence of disease. Performed By: #### 1 0231, 718, 7600, 1005, 45651, 5363, 13607, 6399 #### [facility] [address], [address] [place] [address] Boxing Instructor: Bang Spring MD PTH, INTACT WITHOUT CALCIUMo n 09-16-2021 PARATHYROID HORMONE, INTACT 82 pg/mL High 16-77 [facility] Comment on above: Result Comment: Interpretive Guide Intact PTH Calcium ------- Normal Parathyroid Normal Normal Hypoparathyroidism Low or Low Normal Low Hyperparathyroidism Primary Normal or High High Secondary High Normal or Low Tertiary High High Non-Parathyroid Hypercalcemia Low or Low Normal High Performed By: #### 1 0231, 718, 7600, 1005, 96343, 5363, 36968, 6399 #### [facility] [address], [address] [place] [address] Boxing Instructor: Bang Spring MD TEST AUTHORIZATIONon CLIENT CONTACT: GEETA Rivera Normal [facility] Comment on above: Performed By: #### 1 0231, 718, 7600, 1005, 40628, 5363, 99200, 6399 #### [facility] [address], [address] [place] [address] Boxing Instructor: Bang Spring MD COMMENT Normal [facility] Comment on above: Result Comment: Plea se have the ordering physician or his or her authorized computer help desk representative sign a copy of this report and promptly return it by faxing it to: [phone] or by returning the form to your corporate counselor. Performed By: #### 1 0231, 718, 7600, 1005, 10947, 5363, 48215, 6399 #### [facility] [address], [address] [place] [address] Boxing Instructor: Bang Spring MD REPORT ALWAYS MESSAGE SIGNATURE Normal [facility] Comment on above: Result Comment: The laboratory testing on this patient was verbally requested or confirmed by the ordering physician or his or her authorized computer help desk representative after contact with an employee of [employer]. Federal regulations require that we maintain on file written authorization for all laboratory testing. Accordingly we are asking that the ordering physician or his or her authorized computer help desk representative sign a copy of this report and promptly return it to the client development consultant. Signature: Performed By: #### 1 0231, 718, 7600, 1005, 35998, 5363, 27938, 6399 #### [facility] [address], [address] [place] [address] Boxing Instructor: Bang Spring MD TEST CODE: 5363SB Normal [facility] Comment on above: Performed By: #### 1 0231, 718, 7600, 1005, 04261, 5363, 12076, 6399 #### [facility] [address], [address] [place] [address] Boxing Instructor: Bang Spring MD TEST NAME: PSA, TOTAL Normal [facility] Comment on above: Performed By: #### 1 0231, 718, 7600, 1005, 27810, 5363, 87260, 6399 #### [facility] [address], [address] [place] [address] Boxing Instructor: Bang Spring MD VITAMIN D,25-OH,TOTAL,IAon 0 4--2021 VITAMIN D,25-OH,TOTAL,IA 12 ng/mL Low 30-100 [facility] Comment on above: Result Comment: Dianna min D Status 25-OH Vitamin D: Deficiency: <20 ng/mL Insufficiency: 20 - 29 ng/mL Optimal: > or = 30 ng/mL For 25-OH Vitamin D testing on patients on D2-supplementation and patients for whom quantitation of D2 and D3 fractions is required, the [facility]() 25-OH VIT D, (D2,D3), LC/MS/MS is recommended: order code 25146 (patients >2yrs). See Note 1 Note 1 For additional information, please refer to http://education.[employer]/faq/PEZ784 (This link is being provided for informational/ educational purposes only.) Performed By: #### 1 0231, 718, 7600, 1005, 35990, 5363, 12366, 6399 #### [facility] [address], [address] [place] [address] Boxing Instructor: Bang Spring MD [facility], [place]-05-2021 Albumin [Mass/Vol] 4.3 g/dL Normal 3.6-5.1 [facility] Comment on above: Performed By: #### 7 600, 01253 #### [facility] [place] [address] Boxing Instructor: Bang Spring MD Albumin/Globulin [Mass ratio] 1.5 {ratio} Normal 1.0-2.5 [facility] Comment on above: Performed By: #### 7 600, 49220 #### [facility] [place] [address] Boxing Instructor: Bang Spring MD ALP [Catalytic activity/Vol] 98 U/L Normal 35-144 [facility] Comment on above: Performed By: #### 7 600, 41312 #### [facility] [place] [address] Boxing Instructor: Bang Spring MD ALT [Catalytic activity/Vol] 18 U/L Normal 9-46 [facility] Comment on above: Performed By: #### 7 600, 54907 #### [facility] [place] [address] Boxing Instructor: Bang Spring MD AST [Catalytic activity/Vol] 19 U/L Normal 10-35 [facility] Comment on above: Performed By: #### 7 600, 35274 #### [facility] [place] [address] Boxing Instructor: Bang Spring MD Bilirubin [Mass/Vol] 1.5 mg/dL High 0.2-1.2 [facility] Comment on above: Performed By: #### 7 600, 21524 #### [facility] [place] [address] Boxing Instructor: Bang Spring MD Calcium [Mass/Vol] 9.5 mg/dL Normal 8.6-10.3 [facility] Comment on above: Performed By: #### 7 600, 57992 #### [facility] [address], [address] [place] [address] Boxing Instructor: Bang Spring MD Chloride [Moles/Vol] 106 mmol/L Normal 98-110 [facility] Comment on above: Performed By: #### 7 600, 49968 #### [facility] [address], [address] [place] [address] Boxing Instructor: Bang Spring MD CO2 [Moles/Vol] 23 mmol/L Normal 20-32 [facility] Comment on above: Performed By: #### 7 600, 46103 #### [facility] [address], [address] [place] [address] Boxing Instructor: Bang Spring MD Creatinine [Mass/Vol] 1.48 mg/dL High 0.70-1.[address] [facility] Comment on above: Result Comment: For patients >49 years of age, the reference limit for Creatinine is approximately 13% higher for people identified as -[place]. Performed By: #### 7 600, 28471 #### [facility] [address], [address] [place] [address] Boxing Instructor: Bang Spring MD eGFR NON-AFR. KOSOVAN 45 mL/min/1.73m2 Low > OR = 60 [facility] Comment on above: Performed By: #### 7 600, 38076 #### [facility] [address], [address] [place] [address] Boxing Instructor: Bang Spring MD GFR/1.73 sq M.predicted among blacks MDRD (S/P/Bld) [Vol rate/Area] 53 mL/min/{1.73_m2} Low > OR = 60 [facility] Comment on above: Performed By: #### 7 600, 83693 #### [facility] [address], [address] [place] [address] Boxing Instructor: Bang Spring MD Globulin (S) [Mass/Vol] 2.8 g/dL Normal 1.9-3.7 [facility] Comment on above: Performed By: #### 7 600, 16707 #### [facility] [place] [address] Boxing Instructor: Bang Spring MD Glucose [Mass/Vol] 100 mg/dL High 65-99 [facility] Comment on above: Result Comment: Fasting reference interval For someone without known diabetes, a glucose value between 100 and 125 mg/dL is consistent with prediabetes and should be confirmed with a follow-up test. Performed By: #### 7 600, 54574 #### [facility] [address], [address] [place] [address] Boxing Instructor: Bang Spring MD Potassium [Moles/Vol] 4.4 mmol/L Normal 3.5-5.3 [facility] Comment on above: Performed By: #### 7 600, 08391 #### [facility] [place] [address] Boxing Instructor: Bang Spring MD Protein [Mass/Vol] 7.1 g/dL Normal 6.1-8.1 [facility] Comment on above: Performed By: #### 7 600, 98551 #### [facility] [place] [address] Boxing Instructor: Bang Spring MD Sodium [Moles/Vol] 140 mmol/L Normal 135-146 [facility] Comment on above: Performed By: #### 7 600, 86387 #### [facility] [place] [address] Boxing Instructor: Bang Spring MD Urea nitrogen [Mass/Vol] 17 mg/dL Normal 7-25 [facility] Comment on above: Performed By: #### 7 600, 40251 #### [facility] [place] [address] Boxing Instructor: Bang Spring MD Urea nitrogen/Creatinine [Mass ratio] 11 mg/mg Normal 6-22 [facility] Comment on above: Performed By: #### 7 600, 04971 #### [facility] [place] [id number] Boxing Instructor: Bang Spring MD LIPID PANEL, [facility] [place] Cholesterol [Mass/Vol] 103 mg/dL Normal <200 [facility] Comment on above: Order Comment: FASTI NG:YES FASTING: YES Performed By: #### 7 600, 09393 #### [facility] [address], [address] [place], [place] [address] Boxing Instructor: Bang Spring MD Cholesterol in HDL [Mass/Vol] 34 mg/dL Low > OR = 40 [facility] Comment on above: Order Comment: FASTI NG:YES FASTING: YES Performed By: #### 7 600, [id number] #### [facility] [address], [address] [place] [address] Boxing Instructor: Bang Spring MD Cholesterol in LDL [Mass/Vol] 48 mg/dL Normal [facility] Comment on above: Order Comment: FASTI NG:YES FASTING: YES Result Comment: Refe rence range: <100 Desirable range <100 mg/dL for primary prevention; <70 mg/dL for patients with CHD or diabetic patients with > or = 2 CHD risk factors. LDL-C is now calculated using the Lv-Esme calculation, which is a validated novel method providing better accuracy than the Friedewald equation in the estimation of LDL-C. Lv PEREZ et al. FARHANA. 2013;310(19): 3294-6459 (http://education.Sandboxx/faq/DWZ185) Performed By: #### 7 600, [id number] #### [facility] [address], [address] [place] [address] Boxing Instructor: Bang Spring MD Cholesterol.total/Cho lesterol in HDL [Mass ratio] 3.0 {ratio} Normal <5.0 [facility] Comment on above: Order Comment: FASTI NG:YES FASTING: YES Performed By: #### 7 600, [id number] #### [facility] [address], [address] [place] [address] Boxing Instructor: Bang Spring MD NON HDL CHOLESTEROL 69 mg/dL (calc) Normal <130 [facility] Comment on above: Order Comment: FASTI NG:YES FASTING: YES Result Comment: For patients with diabetes plus 1 major ASCVD risk factor, treating to a non-HDL-C goal of <100 mg/dL (LDL-C of <70 mg/dL) is considered a therapeutic option. Performed By: #### 7 600, [id number] #### [facility] [address] [place] [address], [address] [place] [address] Boxing Instructor: Bang Spring MD Triglyceride [Mass/Vol] 124 mg/dL Normal <150 [facility] Comment on above: Order Comment: FASTI NG:YES FASTING: YES Performed By: #### 7 600, [id number] #### [facility] [address], [address] [place] [address] Boxing Instructor: Bang Spring MD Vital Signs Date Time Vital Sign Value Performing Clinician Facility 07-07-2023 09:06-0500 Body height 180.3 cm Chantelle OQUENDO Work Phone: [facility] 07-07-2023 09:06-0500 Body mass index (BMI) [Ratio] 34.45 kg/m2 Chantelle OQUENDO Work Phone: [facility] 07-07-2023 09:06-0500 Body weight 112.04 kg Chantelle OQUENDO Work Phone: [facility] 07-07-2023 09:06-0500 Diastolic blood pressure 68 mm[Hg] Chantelle OQUENDO Work Phone: [facility] 07-07-2023 09:06-0500 Heart rate 66 /min Chantelle OQUENDO [facility] 07-07-2023 09:06-0500 Respiratory rate 16 /min Chantelle OQUENDO Work Phone: [facility] 07-07-2023 09:06-0500 SaO2% (BldA) [Mass fraction] 98 % Chantelle OQUENDO Work Phone: [facility] 07-07-2023 09:06-0500 Systolic blood pressure 102 mm[Hg] Chantelle OQUENDO Work Phone: [facility] 07-04-2023 14:00-0500 Body height 180.3 cm Beronica Campbell MD Work Phone: [facility] 07-04-2023 14:00-0500 Body mass index (BMI) [Ratio] 34.73 kg/m2 Beronica Campbell MD Work Phone: [facility] 07-04-2023 14:00-0500 Body weight 112.95 kg Beronica Campbell MD Work Phone: [facility] 07-04-2023 14:00-0500 Diastolic blood pressure 70 mm[Hg] Beronica Campbell MD Work Phone: [facility] 07-04-2023 14:00-0500 Heart rate 69 /min Beronica Campbell MD Work Phone: [facility] 07-04-2023 14:00-0500 SaO2% (BldA) [Mass fraction] 99 % Beronica Campbell MD Work Phone: [facility] 07-04-2023 14:00-0500 Systolic blood pressure 110 mm[Hg] Beronica Campbell MD Work Phone: [facility] 06-21-2023 09:01-0500 Body height 180.3 cm Chris Richards DO Work Phone: [facility] 06-21-2023 09:01-0500 Body mass index (BMI) [Ratio] 35.58 kg/m2 Chris Richards DO Work Phone: [facility] 06-21-2023 09:01-0500 Body temperature 97.59 [degF] Chris Richards DO Work Phone: [facility] 06-21-2023 09:01-0500 Body weight 115.71 kg Chris Richards DO Work Phone: [facility] 06-21-2023 09:01-0500 Diastolic blood pressure 62 mm[Hg] Chris Richards DO Work Phone: [facility] [address] [facility] 06-21-2023 09:01-0500 Heart rate 86 /min Chris Richards DO Work Phone: [facility] [address] [facility] 06-21-2023 09:01-0500 SaO2% (BldA) [Mass fraction] 95 % Chris Richards DO Work Phone: [facility] [address] [facility] 06-21-2023 09:01-0500 Systolic blood pressure 116 mm[Hg] Chris Richards DO Work Phone: [facility] [address] [facility] 06-02-2023 09:36-0500 Body height 180.3 cm Chantelle Reyes PA Work Phone: [facility] [address] [facility] 06-02-2023 09:36-0500 Body mass index (BMI) [Ratio] 35.98 kg/m2 Chantelle Reyes PA Work Phone: [facility] [address] [facility] 06-02-2023 09:36-0500 Body weight 117.03 kg Chantelle Reyes PA Work Phone: [facility] [address] [facility] 06-02-2023 09:36-0500 Diastolic blood pressure 79 mm[Hg] Chantelle Reyes PA Work Phone: [facility] [address] [facility] 06-02-2023 09:36-0500 Heart rate 69 /min Chantelle Reyes PA Work Phone: [facility] [address] [facility] 06-02-2023 09:36-0500 Respiratory rate 16 /min Chantelle Reyes PA Work Phone: [facility] [address] [facility] 06-02-2023 09:36-0500 SaO2% (BldA) [Mass fraction] 100 % Chantelle Reyes PA Work Phone: [facility] [address] [facility] 06-02-2023 09:36-0500 Systolic blood pressure 119 mm[Hg] Chantelle Reyes PA Work Phone: [facility] Encounters Encounter Date Encounter Type Care Provider Facility Start: 07-13-2023 End: 07-14-2023 ambulatory [facility] Start: 07-11-2023 Refill Chris Roe Work Phone: [facility] Comment on above: Stage 3b chronic kid neisha [facility] Essential hypertension Start: 07-08-2023 Telephone encounter [facility] Comment on above: CT Start: 07-07-2023 End: 07-07-2023 ambulatory CHANTELLELAURIE REYES [facility] Start: 07-07-2023 End: 07-07-2023 Office outpatient visit 15 minutes Chantelle OQUENDO Work Phone: [facility] Comment on above: Lumbosacral spondylo sis without myelopathy (Primary Dx) Start: 07-04-2023 End: 07-04-2023 ambulatory [facility] Start: 07-04-2023 Encounter for preprocedural cardiovascular examination [facility] Start: 07-04-2023 End: 07-04-2023 Office outpatient visit 25 minutes Beronica Campbell MD Work Phone[facility] Comment on above: Encounter for pre-op erative cardiovascular clearance (Primary Dx); History of ST elevation myocardial infarction (STEMI); S/P right coronary artery (RCA) stent placement; Ischemic cardiomyopathy; Essential hypertension; Ascending aorta dilatation ([facility]) Start: 07-04-2023 End: 07-04-2023 Patient encounter status Beronica Campbell MD Work Phone: [facility] [address] Work Phone: Start: 07-01-2023 Telephone encounter Maria Fernanda Matos CMA [facility] Start: 06-21-2023 End: 06-21-2023 ambulatory CHRIS RICHARDS [facility] Start: 06-21-2023 End: 06-21-2023 Office outpatient visit 25 minutes Chris Richards DO Work Phone: [facility] Comment on above: Essential hypertensi on (Primary Dx); Stage 3b chronic kidney disease ([facility]); Gastroesophageal reflux disease without esophagitis; Ascending aorta dilatation ([facility]); Obesity, morbid ([facility]) Start: 06-17-2023 End: 06-18-2023 ambulatory [facility] Start: 06-15-2023 End: 06-16-2023 ambulatory CHRIS GALLOWAYFili [facility] Start: 06-13-2023 End: 06-13-2023 ambulatory JANETT Chung [place] Not Available Start: 06-12-2023 Refill Chris Cain O Work Phone: [facility] Comment on above: Multiple vessel thi nary artery disease Start: 06-08-2023 End: 06-08-2023 ambulatory ROLAN MIDDLETNO Not Available Start: 06-02-2023 End: 06-02-2023 Emergency department patient visit [facility] Start: 06-02-2023 End: 06-02-2023 ambulatory CHANTELLE REYES [facility] Start: 06-02-2023 End: 06-02-2023 Office outpatient visit 25 minutes Chantelle Reyes PA Work Phone: [facility] Comment on above: Disorder of sacrum ( Primary Dx) Start: 05-20-2023 End: 05-21-2023 ambulatory [facility] Start: 10-07-2021 End: 10-08-[address] CHRIS RICHARDS Facility:[facility]1 Start: 09-30-2021 End: 10-01-[address] CHRIS RICHARDS Facility:[facility]1 Procedures Date Procedure Procedure Detail Performing Clinician Start: 07-04-2023 Ecg routine ecg w/le ast 12 lds w/i&r Beronica Campbell MD Work Phone: Start: 06-21-2023 Adult depression screening assessment Chris Richards DO Work Phone: Start: 03-22-2023 Adult depression screening assessment Chantelle OQUENDO Work Phone: Start: 03-15-2021 History of placement of stent for coronary artery disease S/P right coronary artery (RCA) stent placement Chantelle OQUENDO Work Phone: History of placement of stent for coronary artery disease S/P right coronary artery (RCA) stent placement Beronica Campbell MD Work Phone: Plan of Treatment Date Care Activity Detail Author Start: 06-13-2031 DTaP,Tdap and Td Vaccines (3 - Td or Tdap) DTaP,Tdap and Td Vaccines (3 - Td or Tdap) [facility] Start: 07-07-2024 Adult BMI Screening Adult BMI Screen ing [facility] Start: 07-07-2024 Tobacco Screening Tobacco Screening [facility] Start: 07-04-2024 Adult BMI Screening Adult BMI Screen ing [facility] Start: 07-04-2024 Tobacco Screening Tobacco Screening [facility] Start: 06-21-2024 Adult BMI Screening Adult BMI Screen ing [facility] Start: 06-21-2024 Depression Screening Depression Scre [facility] Start: 06-21-2024 Fall Risk Screening Fall Risk Screen ing [facility] Start: 06-21-2024 Tobacco Screening Tobacco Screening [facility] Start: 06-02-2024 Adult BMI Screening Adult BMI Screen ing [facility] Start: 06-02-2024 Tobacco Screening Tobacco Screening [facility] Start: 03-22-2024 Depression Screening Depression Scre [facility] Start: 03-22-2024 Fall Risk Screening Fall Risk Screen ing [facility] Start: 10-02-2023 End: 07-04-2024 Lipid 1996 panel - Serum or Plasma Lipid profile Lab Routine Essential hypertension Expected: 10/02/2023 (Approximate), Expires: 07/04/2024 [facility] Work Phone: Comment on above: Expected: 10/02/2023 (Approximate), Expires: 07/04/2024 Start: 08-18-2023 End: 08-18-2023 Patient encounter procedure 08/18/2023 8:15 AM EDT Office Visit [facility] [address] [place] [phone] Chantelle Reyes PA [address] [place] [address] [facility] Start: 07-13-2023 End: 07-13-2023 Patient encounter procedure 07/13/2023 1:30 PM EST Appointment [facility] [address] [place] [phone] [facility] Start: 07-13-2023 Subsequent hospital visit by physician 07/13/2023 1:30 PM EST Hospital Encounter [facility] [address] [place] [phone] Canceled (Other) [facility] Comment on above: Canceled (Other) Start: 07-07-2023 End: 07-07-2023 Patient encounter procedure 07/07/2023 8:45 AM EST Office Visit [facility] [address] [place] [phone] Chantelle Reyes PA [address] [place] [address] [facility] Start: 07-04-2023 End: 07-04-2023 Patient encounter procedure 07/04/2023 2:15 PM EST Office Visit [facility] [address] [place] [phone] Beronica Campbell MD [address] [place] [address] [facility] Start: 07-04-2023 End: 07-04-2024 CT Chest WO and CT angiogram Coronary arteries W contrast IV CT angiogram chest Imaging Routine Essential hypertension Ascending aorta dilatation ([facility]) Expected: 07/04/2023, Expires: 07/04/2024 [facility] Comment on above: Expected: 07/04/2023 , Expires: 07/04/2024 Start: 06-17-2023 End: 06-17-2023 Admission to same day surgery center 06/17/2023 12:53 PM EST - 06/17/2023 1:00 PM EST Surgery [facility] [address] [place] [phone] Timothy Sanchez MD [address] [place], [place] [id number] INJECTION BLOCK SACROILIAC JOINT [01331 (CPT )] [facility] Comment on above: INJECTION BLOCK SACR OILIAC JOINT [64736 (CPT )] Start: 06-17-2023 End: 06-17-2023 Inject si joint arthrgrphy&/anes/stero id w/pacheco INJECTION BLOCK SACROILIAC JOINT Disorder of sacrum 06/17/2023 12:53 PM EST [facility] Start: 06-17-2023 Subsequent hospital visit by physician 06/17/2023 12:53 PM EST Hospital Encounter [facility] [address] [place] [phone] Timothy Sanchez MD [address] [place], [place] [id number] [facility] Start: 1963 Adult BMI Follow Up Plan Adult BMI Follow Up Plan [facility] Start: 1945 Medicare Annual Wellness Visit Medicare Annual Wellness Visit [facility] Immunizations Immunization Date Immunization Notes Care Provider Fa cility 06-30-2023 RSV, recombinant, protein subunit RSVpreF, adjuvant reconstituted, 0.5 mL, PF Chantelle OQUENDO Work Phone: [facility] 02-16-2023 Covid-19, Mrna, Lnp- s, Bivalent, Pf, 30mcg/0.3 ml Chantelle OQUENDO Work Phone: [facility] 02-16-2023 Influenza, High-dose , Quadrivalent Chantelle OQUENDO Work Phone: [facility] 02-18-2022 Influenza, High-dose , Quadrivalent Chantelle OQUENDO Work Phone: [facility] 01-02-2022 zoster vaccine recombinant Chantelle OQUENDO Work Phone: [facility] 10-14-2021 zoster vaccine recombinant Chantelle OQUENDO Work Phone: [facility] 06-13-2021 tetanus toxoid, redu marilyn diphtheria toxoid, and acellular pertussis vaccine, adsorbed Chantelle OQUENDO Work Phone: [facility] 03-25-2021 COVID-19, mRNA, LNP- S, PF, 100mcg/0.5mL Dose Chantelle OQUENDO Work Phone: [facility] 03-24-2021 COVID-19, mRNA, LNP- S, PF, 100mcg/0.5mL Dose Chantelle OQUENDO Work Phone: [facility] 02-11-2021 influenza, injectabl e, quadrivalent, contains preservative Chantelle OQUENDO Work Phone: [facility] 08-07-2020 COVID-19, mRNA, LNP- S, PF, 100mcg/0.5mL Dose Chantelle OQUENDO Work Phone: [facility] 07-10-2020 COVID-19, mRNA, LNP- S, PF, 100mcg/0.5mL Dose Chantelle OQUENDO Work Phone: [facility] 01-23-2020 Influenza, High-dose , Quadrivalent Chantelle Reyes PA Work Phone: [facility] 02-27-2019 influenza, high dose seasonal, preservative-free Chantelle Reyes PA Work Phone: [facility] 02-27-2019 pneumococcal polysaccharide vaccine, 23 valent Chantelle Reyes PA Work Phone: [facility] 02-24-2018 influenza, high dose seasonal, preservative-free Chantelle Reyes PA Work Phone: [facility] 04-19-2017 influenza, injectabl e, quadrivalent, preservative free Chantelle Reyes PA Work Phone: [facility] 03-15-2017 influenza, high dose seasonal, preservative-free Chantelle Reyes PA Work Phone: [facility] 04-29-2016 influenza, injectabl e, madin colton canine kidney, preservative free Chantelle Reyes PA Work Phone: [facility] 03-30-2016 influenza, injectabl e, quadrivalent, preservative free Chantelle Reyes PA Work Phone: [facility] 03-16-2016 pneumococcal polysaccharide vaccine, 23 valent Chantelle OQUENDO Work Phone: [facility] 02-28-2016 pneumococcal polysaccharide vaccine, 23 valent Chantelle OQUENDO Work Phone: [facility] 02-23-2016 influenza, high dose seasonal, preservative-free Chantelle OQUENDO Work Phone: [facility] 10-10-2015 tetanus toxoid, redu marilyn diphtheria toxoid, and acellular pertussis vaccine, adsorbed Chantelle OQUENDO Work Phone: [facility] 02-23-2015 influenza, high dose seasonal, preservative-free Chantelle OQUENDO Work Phone: [facility] 03-06-2013 pneumococcal conjuga te vaccine, 13 valent Chantelle OQUENDO Work Phone: [employer] 03-06-2013 zoster vaccine, live Chantelle OQUENDO [facility] Payers Date Payer Category Payer Medicare [id number] 2022 Unknown [employer] [id number] 2022-Present [phone] [address] [place] [address] [id number] 1960 Medicare [id number] 1945 Unknown [id number] 1944 Unknown [id number] [id number] 1944 Unknown [id number] [id number] 1944 Unknown [id number] [id number] 1944 Unknown [id number] [id number] 1944 Unknown [id number] [id number]86 1944 Unknown [id number] [id number]86 1944 Unknown [id number] 2.16.840.1.171309.3.579.2.1286 1944 Unknown [id number] [id number] 1944 Unknown [id number] [id number] 1944 Unknown [id number] 2.16.840.1.036665.3.579.2.1286 1944 Unknown [id number] 2.16.840.1.965806.3.579.2.1286 1944 Unknown [id number] 2.16.840.1.896369.3.579.2.1286 1944 Unknown [id number] [id number] 1944 Unknown [id number] [id number] Social History Date Type Detail Facility Start: 06-08-2022 Tobacco smoking status NHIS Ex-smoker [facility] History of tobacco use Current smoker [facility] History of tobacco use Cigarette Smoker P [facility] Start: 06-08-2022 Tobacco use and exposure Smokeless tobacco non-user [facility] Start: 06-02-2023 End: 07-07-2023 Alcohol intake Current non-drinker of alcohol (finding) [facility] Start: 06-05-2022 End: 07-07-2023 History of Social function [facility] Start: 06-05-2022 End: 07-07-2023 Social connection and isolation panel [facility] Frequency of Communication with Friends and Family Not on file [facility] Do you belong to any clubs or organizations such as anabaptism groups, unions, fraternal or athletic groups, or school groups? No [facility] Are you now , , , , never or living with a partner? [facility] How often to you hav e a drink containing alcohol? Never [facility] Do you feel stress - tense, restless, nervous, or anxious, or unable to sleep at night because your mind is troubled all the time - these days [OSQ] To some extent [facility] Start: 06-05-2022 Education 12 [facility] Start: 06-08-2022 Tobacco Comment quit in 1987 [facility] Start: 1945 Sex Assigned At Male [facility] Start: 11-04-2019 Gender identity Identifies as male gender (finding) [facility] Start: 11-04-2019 Sexual orientation Heterosexual (finding) [facility] Medical Equipment Procedure Code Equipment Code Equipment Origin al Text Equipment Identifier Dates Cement Bn [place] [employer] Radpq 40g Rpl [id number] - Sna - [id number] Start: 03-02-2017 Cement [employer] [place] [employer] Radpq 40g Rpl [id number] - Sna - [id number] Start: 10-05-2017 Srfc Artc 10mm Persona 03-10 Sna - [id number] Start: 03-02-2017 Cmpt Fem 10 Std Kn Lt Cmnt - Sna - [id number] Start: 10-05-2017 Bsplt Tib 5d G K n Rt Cmnt Stm - Sna - [id number], [id number] FDA Start: 03-02-2017 Bsplt Tib 5d G K n Lt Cmnt Stm - Sna - [id number] Start: 10-05-2017 Robi Xience Sierr a 4x15 Rx - [id number] FDA Start: 11-26-2020 Goals Date Patient Goal Desired Activity /State Personal health goal Comment on above: Formatting of this n ote might be different from the original. Evaluation of progress towards goal: plan is discharge home with self care and family support Clinical Notes 06-02-2023 to 07-08-2023 Telephone Encounter - Tabitha Borjas RN - 07/08/2023 1:38 PM ESTTelephone Encounter - Tabitha Borjas RN - 07/08/2023 1:38 PM JERE Thacker - 07/07/2023 8:45 AM ESTPatient Instructions Note Date & Type Note Facility 07-08-2023 Miscellaneous Notes Patient calls stating that he has cancelled his CT ordered by Dr. Campbell. He states that he has had previous issues with his kidney function when contrast is used in testing. Pt is followed by nephrology and there is a note in the chart that they were contacted and waiting for a call back. Pt does not really want to have the test completed until he see's nephrology again in October. Body Former advised patient that the decision is up to him and I will document he is choosing to wait until that follow up appt. documented in this encounter [facility] 07-08-2023 Telephone encounter Note Patient calls stating that he has cancelled his CT ordered by Dr. Campbell. He states that he has had previous issues with his kidney function when contrast is used in testing. Pt is followed by nephrology and there is a note in the chart that they were contacted and waiting for a call back. Pt does not really want to have the test completed until he see's nephrology again in October. Body Former advised patient that the decision is up to him and I will document he is choosing to wait until that follow up appt. [facility] 07-07-2023 History of Presen t illness Narrative [facility] [address] [place] [address] Patient: Chris Melo Sex: male : 1945 Age: 77 y.o. PCP: Chris Richards Jr, DO 07/07/2023 Chris Melo is here for a(n) post procedure follow up 06/17/2023 right sacroiliac injection with 100% relief for couple of days and 70-80% continued relief. Patient is able to tolerate ADLs better although his pain does increase if he is bent over for a period of time. Patient states pain dissipates after sitting down. Pre-procedural pain was reported as 3/10. Chief Complaint Patient presents with Back Pain HPI: No physical therapy 04/15/23 Left SI injection with 90-100% relief for 1 week and currently 80% relief of his left buttock/leg pain 05/20/2023 caudal with at least 80% relief 06/17/2023 right sacroiliac injection with 100% relief and 70-80% continued relief pre proc pain 3/10 Back Pain This is a chronic problem. Episode onset: November 2022. The problem occurs intermittently. The problem has been gradually improving (post right SI injection) since onset. The pain is present in the lumbar spine and gluteal (right). The quality of the pain is described as aching. The pain does not radiate. The pain is at a severity of 0/10 (no pain today. Pain gets 3-4/10 if bending over for a period of time). The pain is mild. Exacerbated by: siting, standing, walking, bending, lifting, lying, cold, heat. Stiffness is present: washing dishes. Associated symptoms include leg pain (Left lateral LE to knee with soreness only) and numbness (intermittently to anterior aspect of thighs). Pertinent negatives include no bladder incontinence, bowel incontinence, chest pain, fever, tingling or weakness. (States sharp pain to thigh with climbing stairs. ) Risk factors include history of cancer. Treatments tried: Steroids, tylenol with significant relief; heat, chiropractor with minimal relief; ice with no relief. The treatment provided mild relief. The effect of pain on patient's ADLS: Moderate Impairment. Past Medical History: Diagnosis Date Chronic pain disorder Depression Ear ringing HL (hearing loss) Hyperlipidemia Hypertension Kidney stones Low back pain Myocardial infarction (CMS-HCC) OA (osteoarthritis) of knee Sleep apnea Visual impairment glasses Past Surgical History: Procedure Laterality Date BASAL CELL CARCINOMA EXCISION CARDIAC CATHETERIZATION N/A 11/26/2020 Performed by Jacob Díaz MD at [facility] CARDIAC CATH LABS COLONOSCOPY COLONOSCOPY N/A 04/05/2018 Performed by Chris Richards DO at [facility] Coronary angiogram and left ventricular gram/pressure N/A 11/26/2020 Performed by Jacob Díaz MD at [facility] CARDIAC CATH LABS INJECTION BLOCK EPIDURAL CAUDAL STEROID N/A 05/20/2023 Performed by Timothy Sanchez MD at [facility] INJECTION BLOCK SACROILIAC JOINT Right 06/17/2023 Performed by Timothy Sanchez MD at [facility] INJECTION BLOCK SACROILIAC JOINT Left 04/15/2023 Performed by Timothy Sanchez MD at [facility] LITHOTRIPSY NECK SURGERY PROSTATE BIOPSY REPLACEMENT TOTAL JOINT KNEE Left 10/05/2017 Performed by Aden Mcconnell DO at [facility] REPLACMENT TOTAL JOINT KNEE Right 03/02/2017 Performed by Aden Mcconnell DO at [facility] Revascularization occlusion with myocardial infarction drug eluting stent right coronary artery N/A 11/26/2020 Performed by Jacob Díaz MD at [facility] CARDIAC CATH LABS SPERMATOCELECTOMY Bilateral 07/17/2019 Performed by Joshua Alanis MD at [facility] UVULOPALATOPHARYNGOPLASTY No Known Allergies Family History Problem Relation Age of Onset Parkinsonism Mother Heart disease Father Stroke Maternal Grandfather Social History Socioeconomic History Marital status: Spouse name: Not on file Number of children: Not on file Years of education: Not on file Highest education level: 12th grade Occupational History Not on file Tobacco Use Smoking status: Former Types: Cigarettes Smokeless tobacco: Never Tobacco comments: quit in 1987 Vaping Use Vaping Use: Never used Substance and Sexual Activity Alcohol use: No Drug use: No Sexual activity: Defer Partners: Female Other Topics Concern Caffeine Use Yes Social History Narrative Not on file Social Determinants of Health Financial Resource Strain: Low Risk (06/19/2023) Overall Financial Resource Strain (CARDIA) Difficulty of Paying Living Expenses: Not hard at all Food Insecurity: No Food Insecurity (07/07/2023) Hunger Screening Food Insecurity - Worry: Never True Food Insecurity - Inability: Never True Transportation Needs: No Transportation Needs (06/19/2023) PRAPARE - Transportation Lack of Transportation (Medical): No Lack of Transportation (Non-Medical): No Physical Activity: Insufficiently Active (06/05/2022) Exercise Vital Sign Days of Exercise per Week: 3 days Minutes of Exercise per Session: 30 min Stress: Stress Concern Present (06/05/2022) [employer] - Occupational Stress Questionnaire Feeling of Stress : To some extent Social Connections: Unknown (06/05/2022) Social Connection and Isolation Panel [NHANES] Frequency of Communication with Friends and Family: Not on file Frequency of Social Gatherings with Friends and Family: Once a week Attends Bahai Services: More than 4 times per year Active Member of Clubs or Organizations: No Attends Club or Organization Meetings: More than 4 times per year Marital Status: Interpersonal Safety: Not At Risk (06/05/2022) Humiliation, Afraid, Rape, and Kick questionnaire Fear of Current or Ex-Partner: No Emotionally Abused: No Physically Abused: No Sexually Abused: No Housing Instability: Low Risk (06/19/2023) Housing Instability Housing Instability: No Review of Systems Constitutional: Negative for fever. HENT: [place] Respiratory: Negative for cough and shortness of breath. Cardiovascular: Negative for chest pain. Gastrointestinal: Positive for constipation. Negative for bowel incontinence and diarrhea. Genitourinary: Negative for bladder incontinence, difficulty urinating and frequency. Musculoskeletal: Positive for back pain. Skin: Negative. Neurological: Positive for numbness (intermittently to anterior aspect of thighs). Negative for tingling and weakness. Psychiatric/Behavioral: Negative. Vital Signs: BP 102/68 Pulse 66 Resp 16 Ht 180.3 cm (5' 11 ) Wt 112 kg (247 lb) SpO2 98% BMI 34.45 kg/m Physical Exam: GENERAL - Healthy patient that appears stated age. HEENT - Normocephalic / Atraumatic, Extraoccular movements intact, trachea midline, thyroid within normal limits. CV - pulse regular, Warm extremities with appropriate color of nailbeds. RESP - No obvious wheezing, No Shortness of Breath, No overexertion response to exam maneuvers. COORDINATION - remains intact. PSYCH - Alert and Oriented x4, Attentive and appropriate, constitutionally normal, displays normal mood and affect per situation, answered questions appropriately during examination, demonstrated appropriate attention during discussion, demonstrated appropriate cognitive reasoning and understanding of the medical condition by asking appropriate questions regarding the diagnosis and risks/benefits/alternatives of treatment modalities. No obvious deficits in memory, reasoning, or intellect. Lumbar: SKIN - No rashes or bruising in the area of the patient s pain. LYMPH NODES - demonstrate no obvious enlargement. EXTREMITIES - Lower extremities are warm, with minimal edema and palpable pulses. Tenderness to palpation noted in the lumbar spine and paraspinal musculature. Pain is elicited with flexion, extension, and lateral rotation of the lumbar spine. Range of motion is diminished with these motions due to pain. Facet palpation is noted to be somewhat tender and facet loading maneuvers are mildly positive, but not concordant with the patient s normal pain complaints. STRENGTH - noted to be 5 out of 5 all muscle groups bilateral lower extremities including muscles involving hip flexion and abduction, knee flexion and extension, as well as foot dorsiflexion and plantarflexion. No notable atrophy, fasciculations or spasm. SENSORY - No notable sensory deficits in the bilateral lower extremities to touch or pinprick in all dermatomal distributions. Straight Leg Raise is negative. Gait is normal. Assessment/Treatment Plan: Chris was seen today for back pain. Diagnoses and all orders for this visit: Lumbosacral spondylosis without myelopathy Monitor Follow up 4-6 weeks The medications prescribed have been reviewed for medication interactions/contraindications and/or for upcoming procedures: continue current medication regimen without any changes. DISCUSSION: Treatment options discussed with patient and all questions answered to patient's satisfaction. Discussed the rules and regulations surrounding prescription of opioids and compliance at length. Failure to follow the rules and regulation will result in tapering and discontinuation of medications if applicable. Prescribed medication that requires intensive monitoring for toxicity We do not currently prescribe any controlled substance from this practice. Treatment plans discussed but not opted for at this time: Lumbar medial branch block injection. Pain is under adequate control. It does appear that the patient benefited from the previous injection and the benefit has continued through this visit. At this time, we will monitor the patient s symptoms from an interventional standpoint and consider another injection in the future if the patient s symptoms return or intensify severely. The patient was made aware that they should call if symptoms worsen or if their pain begins to have a negative impact on their quality of life and activities of daily living again. The spine model was demonstrated and MRI was reviewed and used to explain the condition. OARRS: Reviewed. Scribe Statement: Scribed for and in the presence of JERE GRIFFIN by Verenice Dunn CNA. Provider Statement: I, JERE GRIFFIN, personally performed the services described in the documentation, as scribed by Verenice Dunn CNA in my presence, and it is both accurate and complete. Verenice Dunn CNA 07/07/23 1020 JERE Griffin 07/07/23 1230 documented in this encounter [facility] 07-04-2023 History of Presen t illness Narrative Chris [place] Date of visit: 07/04/2023 Date of : 1945 Age: 77 y.o. Patient Active Problem List Diagnosis Primary osteoarthritis of right knee Osteoarthritis of left knee History of colon polyps Epididymal cyst Testicular cyst Ascending aorta dilatation ([facility]) S/P right coronary artery (RCA) stent placement History of ST elevation myocardial infarction (STEMI) Obesity (BMI 30-39.9) Multiple vessel coronary artery disease Stage 3b chronic kidney disease ([facility]) Obstructive sleep apnea syndrome Impaired fasting glucose Hyperlipidemia Gastroesophageal reflux disease without esophagitis Essential hypertension Depressive disorder Benign prostatic hyperplasia with urinary obstruction Hx of myocardial infarction Ischemic cardiomyopathy Obesity, morbid ([facility]) Disorder of sacrum Spinal stenosis of lumbar region with neurogenic claudication No Known Allergies Current Outpatient Medications Medication Sig Dispense Refill atorvastatin (LIPITOR) 80 mg tablet TAKE 1 TABLET NIGHTLY 90 tablet 1 BRILINTA 90 mg tablet TAKE 1 TABLET EVERY 12 HOURS 180 tablet 1 calcitrioL (ROCALTROL) 0.25 MCG capsule TAKE 1 CAPSULE EVERY MORNING 90 capsule 1 clobetasoL (TEMOVATE) 0.05 % cream 1 Application. famotidine (PEPCID) 40 mg tablet Take 0.5 tablets (20 mg total) by mouth nightly as needed for heartburn. fluticasone propionate (FLONASE) 50 mcg/actuation nasal spray SPRAY 1 SPRAY INTO EACH NOSTRIL IN THE MORNING 16 mL 2 isosorbide mononitrate (IMDUR) 30 mg 24 hr tablet TAKE 1 TABLET DAILY 90 tablet 1 losartan (COZAAR) 100 mg tablet Take 1 tablet (100 mg total) by mouth in the morning. 90 tablet 3 metoprolol succinate XL (TOPROL XL) 25 mg 24 hr tablet TAKE 1 TABLET EVERY MORNING 90 tablet 1 nitroglycerin (NITROSTAT) 0.4 MG SL tablet sertraline (ZOLOFT) 25 mg tablet TAKE 1 TABLET (25 MG TOTAL) BY MOUTH IN THE MORNING 90 tablet 0 spironolactone (ALDACTONE) 25 mg tablet TAKE 1 TABLET EVERY MORNING 90 tablet 1 No current facility-administered medications for this visit. No chief complaint on file. History of Present Illness Patient with history of STEMI, coronary disease with stent to the RCA, moderate LAD and circumflex disease, ischemic cardiomyopathy with recovered EF, hypertension, hyperlipidemia, mild aortic and ascending aorta dilation, CKD, obesity, JEFF. Here for preoperative cardiovascular risk assessment. Planned right ear tube placement. Reports ear fullness and tinnitus. Stated that he is feeling overall well. Some back pain issues. Denies any chest pain or shortness of breath or palpitations or dizziness orthopnea or leg edema no syncope or presyncope stated that he can operate and do activities daily living with no issues. Can go grocery shopping and pushes cart around large department store and caring his bags and heavy loads with no difficulty. Vitals stable. No tobacco use. Past Medical History: Diagnosis Date Chronic pain disorder Depression Ear ringing HL (hearing loss) Hyperlipidemia Hypertension Kidney stones Low back pain Myocardial infarction (CMS-HCC) OA (osteoarthritis) of knee Sleep apnea Visual impairment glasses No data recorded No data recorded No data recorded Past Surgical History: Procedure Laterality Date BASAL CELL CARCINOMA EXCISION CARDIAC CATHETERIZATION N/A 11/26/2020 Performed by Jacob Díaz MD at [facility] CARDIAC CATH LABS COLONOSCOPY COLONOSCOPY N/A 04/05/2018 Performed by Chris Richards DO at [facility] Coronary angiogram and left ventricular gram/pressure N/A 11/26/2020 Performed by Jacob Díaz MD at [facility] CARDIAC CATH LABS INJECTION BLOCK EPIDURAL CAUDAL STEROID N/A 05/20/2023 Performed by Timothy Sanchez MD at [facility] INJECTION BLOCK SACROILIAC JOINT Right 06/17/2023 Performed by Timothy Sanchez MD at [facility] INJECTION BLOCK SACROILIAC JOINT Left 04/15/2023 Performed by Timothy Sanchez MD at [facility] LITHOTRIPSY NECK SURGERY PROSTATE BIOPSY REPLACEMENT TOTAL JOINT KNEE Left 10/05/2017 Performed by Aden Mcconnell DO at [facility] REPLACMENT TOTAL JOINT KNEE Right 03/02/2017 Performed by Aden Mcconnell DO at [facility] Revascularization occlusion with myocardial infarction drug eluting stent right coronary artery N/A 11/26/2020 Performed by Jacob Díaz MD at [facility] CARDIAC CATH LABS SPERMATOCELECTOMY Bilateral 07/17/2019 Performed by Joshua Alanis MD at [facility] UVULOPALATOPHARYNGOPLASTY Family History Problem Relation Age of Onset Parkinsonism Mother Heart disease Father Stroke Maternal Grandfather Social History Socioeconomic History Marital status: Spouse name: Not on file Number of children: Not on file Years of education: Not on file Highest education level: 12th grade Occupational History Not on file Tobacco Use Smoking status: Former Types: Cigarettes Smokeless tobacco: Never Tobacco comments: quit in 1987 Vaping Use Vaping Use: Never used Substance and Sexual Activity Alcohol use: No Drug use: No Sexual activity: Defer Partners: Female Other Topics Concern Caffeine Use Yes Social History Narrative Not on file Social Determinants of Health Financial Resource Strain: Low Risk (06/19/2023) Overall Financial Resource Strain (CARDIA) Difficulty of Paying Living Expenses: Not hard at all Food Insecurity: No Food Insecurity (06/19/2023) Hunger Screening Food Insecurity - Worry: Never True Food Insecurity - Inability: Never True Transportation Needs: No Transportation Needs (06/19/2023) PRAPARE - Transportation Lack of Transportation (Medical): No Lack of Transportation (Non-Medical): No Physical Activity: Insufficiently Active (06/05/2022) Exercise Vital Sign Days of Exercise per Week: 3 days Minutes of Exercise per Session: 30 min Stress: Stress Concern Present (06/05/2022) [employer] - Occupational Stress Questionnaire Feeling of Stress : To some extent Social Connections: Unknown (06/05/2022) Social Connection and Isolation Panel [NHANES] Frequency of Communication with Friends and Family: Not on file Frequency of Social Gatherings with Friends and Family: Once a week Attends Bahai Services: More than 4 times per year Active Member of Clubs or Organizations: No Attends Club or Organization Meetings: More than 4 times per year Marital Status: Interpersonal Safety: Not At Risk (06/05/2022) Humiliation, Afraid, Rape, and Kick questionnaire Fear of Current or Ex-Partner: No Emotionally Abused: No Physically Abused: No Sexually Abused: No Housing Instability: Low Risk (06/19/2023) Housing Instability Housing Instability: No Review of Systems Review of Systems HENT: Positive for tinnitus. Right ear fullness Respiratory: Negative for cough, hemoptysis and wheezing. Musculoskeletal: Positive for back pain. Gastrointestinal: Negative for abdominal pain, change in bowel habit and hematochezia. Genitourinary: Negative for dysuria and hematuria. Neurological: Negative for focal weakness, headaches and paresthesias. CARDIOVASCULAR: Please review HPI. Physical Examination General appearance: Alert, oriented and cooperative. In no acute distress. Skin: Warm and dry to touch. Head: Normocephalic, without obvious abnormality, atraumatic. Ears, Nose, Mouth, Throat: Throat clear without erythema or exudate. Dentition intact. Eyes: Conjunctivae unremarkable, EOM intact. Neck: No JVD, No carotid bruit. Neck supple, trachea midline. Respiratory: Clear to auscultation bilaterally, no use of accessory muscles. Cardiovascular: RRR with normal S1 and S2 with no murmurs. Gastrointestinal: Soft, non-tender. Bowel sounds normal. Musculoskeletal: No peripheral edema. Neurologic: Oriented to time, person and place, affect appropriate. No focal/major motor defects noted. Psychiatric: Appropriate mood, memory and judgement. VITAL SIGNS: There were no vitals taken for this visit. No orders of the defined types were placed in this encounter. There are no discontinued medications. IMPRESSIONS/PLAN 1. Encounter for pre-operative cardiovascular clearance 2. History of ST elevation myocardial infarction (STEMI) 3. S/P right coronary artery (RCA) stent placement 4. Ischemic cardiomyopathy 5. Essential hypertension 6. Ascending aorta dilatation (CMS-HCC) Previous cardiac related labs and test results were reviewed and discussed with the patient. Preoperative cardiovascular risk assessment Hx STEMI CAD s/p RCA robi 2020, moderate LAD and LCx disease ICM with improved EF 50% TTE 02/2021 (previously EF 40-45% 2020) Hypertension Hyperlipidemia - 05/2023: Total cholesterol 103, HDL 32, LDL 23, triglycerides 240 Mild aortic root dilation 4 cm, ascending aorta 4 cm TTE 02/2020 CKD JEFF/BiPAP Obesity, BMI 34 Patient is here for follow-up visit. Doing well stable from cardiac standpoint. Requesting preop cardiovascular clearance for planned right ear tube placement. Patient considered at moderate risk for perioperative cardiovascular complications undergoing low risk procedure. Risk non prohibitive. Can hold Brilinta for 5-7 days prior to procedure and resume when cleared afterwards. Patient noted to have LDL 23, triglycerides 240 in May. Patient counseled on following a low carb diet, exercise and losing weight. I ordered lipid function test to be completed in 2-3 months to reassess triglycerides level. Will follow-up on results with recommendations as needed. Also ordered CTA chest to reassess aortic root and ascending aorta aneurysm size. Will follow-up on results with recommendations as needed. No changes in medications made today. Follow-up in 6 months or sooner if needed. Patient to call us with any cardiac questions or concerns. TODAYS ORDERS No orders of the defined types were placed in this encounter. FOLLOW UP No follow-ups on file. PCP: Chris Richards Jr, DO Referring Physician: Chris Richards DO [address] [id number] Pt scheduled for CTA chest at PM 07/13/23- test instructions given to pt Faxed surgery clearance to Dr Timmis documented in this encounter [facility] 07-01-2023 Miscellaneous Notes Left message for patient to remind them to bring their most current medication list with them to their appointment. documented in this encounter [facility] 07-01-2023 Telephone encounter Note Left message for patient to remind them to bring their most current medication list with them to their appointment. [facility] History of Presen t illness Narrative IM PROGRESS NOTE Patient - Chris Melo Age - 77 [facility] 1945 [id number] ASSESSMENT & PLAN 1. Essential hypertension -goals of treatment reviewed with patient. -home and office readings are at goal -continue losartan 100 mg daily plus spironolactone 25 mg daily 2. Stage 3b chronic kidney disease ([facility]) -most recent GFR 41, stable from previous -reviewed renal protective strategies with the patient. Stay hydrated and avoid NSAIDs -continue to monitor 3. Gastroesophageal reflux disease without esophagitis -patient currently with rare episodes heartburn taking famotidine 40 mg daily -in effort to avoid renal complications associated with his prescription medications, will renally adjust Pepcid to 20 mg daily hopefully can wean off completely -reviewed anti reflux precautions with the patient - famotidine (PEPCID) 40 mg tablet; Take 0.5 tablets (20 mg total) by mouth nightly as needed for heartburn. 4. Ascending aorta dilatation ([facility]) -overall stable. Last measured 1 year ago at 4.0 cm -continue serial echocardiograms 5. Obesity, morbid ([facility]) -reviewed need for weight loss and control in conjunction with his other medical problems -continue efforts on diet control -needs to restart exercise program. I offered to make referral to PT or stage III cardiac rehab but he deferred Subjective CARDIOVASCULAR FOLLOW-UP This is a follow up of a pre-existing problem. Blood pressures are being checked outside the office. Frequency: weekly Readings have been normal. BP readings outside the office range from 110 - 119 mmHg systolic and 70 - 79 mmHg diastolic. The ASCVD Risk score (Angela AVILA, et al., 2019) failed to calculate for the following reasons: The patient has a prior NH or stroke diagnosis Patient reports following dosing instructions Physical activity: Exercise is limited by irregular schedule, and recent problems with lumbar radiculopathy. Has not restarted routine exercise. Dietary efforts show could use some improvement. Is not necessarily limiting portion sizes. CV symptoms review was negative for rapid or irregular heart rate, palpitations, syncope A review of systems was negative except for the following: General: weight loss Psychiatric: Some reactive depression. Several siblings have in the past year. He feels sad, but does not feel it has affected his ADLs. ENT: hearing change and noted to have a chronic otitis on the right side. Is scheduled to have a right tympanostomy tube placed, but needs cardiac clearance to stop his DAPT Musculoskeletal: Completed series of 3 DAREK at pain clinic. His low back and leg pain are almost 100% gone. He is able to walk without symptoms. Able to sleep again.. Exam BP 116/62 (BP Site: Right Arm, BP Postition: Sitting) Pulse 86 Temp 36.4 C (97.6 F) (Tympanic) Ht 180.3 cm (5' 11 ) Wt 115.7 kg (255 lb 1.6 oz) SpO2 95% BMI 35.58 kg/m Physical Exam Vitals reviewed. Constitutional: General: He is not in acute distress. Appearance: He is well-developed. He is obese. He is not toxic-appearing. HENT: Head: Normocephalic. Right Ear: Ear canal and external ear normal. Left Ear: Ear canal and external ear normal. Ears: Comments: TM with pressure changes right Nose: Congestion present. No rhinorrhea. Mouth/Throat: Mouth: Mucous membranes are moist. Eyes: General: No scleral icterus. Comments: Bilateral catracts, L > R Neck: Vascular: No carotid bruit. Cardiovascular: Rate and Rhythm: Normal rate and regular rhythm. Pulses: Normal pulses. Heart sounds: No murmur heard. No gallop. Pulmonary: Effort: Pulmonary effort is normal. Breath sounds: No wheezing or rales. Abdominal: Palpations: Abdomen is soft. Musculoskeletal: General: Normal range of motion. Right lower leg: No edema. Left lower leg: No edema. Skin: General: Skin is warm and dry. Coloration: Skin is not jaundiced. Findings: No bruising. Neurological: Mental Status: He is alert and oriented to person, place, and time. Sensory: No sensory deficit. Motor: No weakness. Coordination: Coordination normal. Deep Tendon Reflexes: Reflexes are normal and symmetric. Psychiatric: Mood and Affect: Mood normal. Behavior: Behavior normal. Meds Current Outpatient Medications: atorvastatin (LIPITOR) 80 mg tablet, TAKE 1 TABLET NIGHTLY, Disp: 90 tablet, Rfl: 1 BRILINTA 90 mg tablet, TAKE 1 TABLET EVERY 12 HOURS, Disp: 180 tablet, Rfl: 1 calcitrioL (ROCALTROL) 0.25 MCG capsule, TAKE 1 CAPSULE EVERY MORNING, Disp: 90 capsule, Rfl: 1 clobetasoL (TEMOVATE) 0.05 % cream, 1 Application., Disp: , Rfl: fluticasone propionate (FLONASE) 50 mcg/actuation nasal spray, SPRAY 1 SPRAY INTO EACH NOSTRIL IN THE MORNING, Disp: 16 mL, Rfl: 2 isosorbide mononitrate (IMDUR) 30 mg 24 hr tablet, TAKE 1 TABLET DAILY, Disp: 90 tablet, Rfl: 1 losartan (COZAAR) 100 mg tablet, Take 1 tablet (100 mg total) by mouth in the morning., Disp: 90 tablet, Rfl: 3 metoprolol succinate XL (TOPROL XL) 25 mg 24 hr tablet, TAKE 1 TABLET EVERY MORNING, Disp: 90 tablet, Rfl: 1 nitroglycerin (NITROSTAT) 0.4 MG SL tablet, , Disp: , Rfl: sertraline (ZOLOFT) 25 mg tablet, TAKE 1 TABLET (25 MG TOTAL) BY MOUTH IN THE MORNING, Disp: 90 tablet, Rfl: 0 spironolactone (ALDACTONE) 25 mg tablet, TAKE 1 TABLET EVERY MORNING, Disp: 90 tablet, Rfl: 1 famotidine (PEPCID) 40 mg tablet, Take 0.5 tablets (20 mg total) by mouth nightly as needed for heartburn., Disp: , Rfl: Lab Results Hospital Outpatient Visit on 06/15/2023 Component Date Value Ref Range Status Cholesterol 06/15/2023 103 (L) 150 - 200 mg/dL Final Triglycerides 06/15/2023 240 (H) 27 - 150 mg/dL Final HDL Cholesterol 06/15/2023 32 (L) >39 mg/dL Final VLDL 06/15/2023 48 (H) 0 - 30 mg/dL Final LDL (calc) 06/15/2023 23 <130 mg/dL Final Cholesterol:HDL Ratio 06/15/2023 3.2 1.0 - 5.0 Final Sodium 06/15/2023 141 134 - 146 mmol/L Final Potassium, Bld 06/15/2023 3.8 3.5 - 5.0 mmol/L Final Chloride 06/15/2023 107 98 - 109 mmol/L Final CO2 06/15/2023 25 22 - 32 mmol/L Final Anion gap 06/15/2023 9 5 - 15 mmol/L Final BUN 06/15/2023 21 5 - 27 mg/dL Final Creatinine 06/15/2023 1.68 (H) 0.60 - 1.30 mg/dL Final Glucose 06/15/2023 114 (H) 65 - 99 mg/dL Final Calcium 06/15/2023 9.9 8.5 - 10.5 mg/dL Final Total Protein 06/15/2023 7.0 6.0 - 8.0 g/dL Final Albumin 06/15/2023 4.2 3.2 - 5.3 g/dL Final Alkaline Phosphatase 06/15/2023 91 39 - 130 U/L Final AST 06/15/2023 17 0 - 41 U/L Final ALT 06/15/2023 18 0 - 40 U/L Final Total bilirubin 06/15/2023 1.1 0.3 - 1.2 mg/dL Final eGFR (CKD-EPI)non-race dependent 06/15/2023 41 (L) >59 ml/min/1.73sq.m Final Other Testing No results found. Chris Richards DO., [facility] Office: [phone] documented in this encounter [facility] 06-02-2023 History of Presen t illness Narrative [facility] [address] [place] [address] Patient: Chris Melo Sex: male : 1945 Age: 77 y.o. PCP: Chris Richards Jr, DO 06/02/2023 Chris Melo is here for a(n) post procedure follow up 05/20/2023 caudal with at least 80% relief . Pain is now to right glute that radiates down posterior RLE past knee. Chief Complaint Patient presents with Back Pain HPI: No physical therapy 04/15/23 Left SI injection with 90-100% relief for 1 week and currently 80% relief of his left buttock/leg pain 05/20/2023 caudal with at least 80% relief Back Pain This is a chronic problem. Episode onset: November 2022. The problem occurs intermittently. The problem has been gradually improving (post caudal) since onset. The pain is present in the lumbar spine and gluteal (right). The quality of the pain is described as aching (sharp pain to right thigh with stair climbing). Radiates to: intermittently from right glute down RLE past knee. The pain is at a severity of 3/10. The pain is mild. Exacerbated by: siting, standing, walking, stairs, bending, lifting, lying, cold, heat. Stiffness is present: washing dishes. Associated symptoms include leg pain (Left lateral LE to knee with soreness only). Pertinent negatives include no bladder incontinence, bowel incontinence, fever, numbness, tingling or weakness. (States sharp pain to thigh with climbing stairs. ) Risk factors include history of cancer. Treatments tried: Steroids, tylenol with significant relief; heat, chiropractor with minimal relief; ice with no relief. The treatment provided mild relief. The effect of pain on patient's ADLS: Moderate Impairment. Past Medical History: Diagnosis Date Chronic pain disorder Depression Ear ringing HL (hearing loss) Hyperlipidemia Hypertension Kidney stones Low back pain Myocardial infarction (CMS-HCC) OA (osteoarthritis) of knee Sleep apnea Visual impairment glasses Past Surgical History: Procedure Laterality Date BASAL CELL CARCINOMA EXCISION CARDIAC CATHETERIZATION N/A 11/26/2020 Performed by Jacob Díaz MD at [facility] CARDIAC CATH LABS COLONOSCOPY COLONOSCOPY N/A 04/05/2018 Performed by Chris Richards DO at [facility] Coronary angiogram and left ventricular gram/pressure N/A 11/26/2020 Performed by Jacob Díaz MD at [facility] CARDIAC CATH LABS INJECTION BLOCK EPIDURAL CAUDAL STEROID N/A 05/20/2023 Performed by Timothy Sanchez MD at [facility] INJECTION BLOCK SACROILIAC JOINT Left 04/15/2023 Performed by Timothy Sanchez MD at [facility] LITHOTRIPSY NECK SURGERY PROSTATE BIOPSY REPLACEMENT TOTAL JOINT KNEE Left 10/05/2017 Performed by Aden Mcconnell DO at [facility] REPLACMENT TOTAL JOINT KNEE Right 03/02/2017 Performed by Aden Mcconnell DO at [facility] Revascularization occlusion with myocardial infarction drug eluting stent right coronary artery N/A 11/26/2020 Performed by Jacob Díaz MD at [facility] CARDIAC CATH LABS SPERMATOCELECTOMY Bilateral 07/17/2019 Performed by Joshua Alanis MD at [facility] UVULOPALATOPHARYNGOPLASTY No Known Allergies Family History Problem Relation Age of Onset Parkinsonism Mother Heart disease Father Stroke Maternal Grandfather Social History Socioeconomic History Marital status: Spouse name: Not on file Number of children: Not on file Years of education: Not on file Highest education level: 12th grade Occupational History Not on file Tobacco Use Smoking status: Former Types: Cigarettes Smokeless tobacco: Never Tobacco comments: quit in 1987 Vaping Use Vaping Use: Never used Substance and Sexual Activity Alcohol use: No Drug use: No Sexual activity: Defer Partners: Female Other Topics Concern Caffeine Use Yes Social History Narrative Not on file Social Determinants of Health Financial Resource Strain: Low Risk (06/05/2022) Overall Financial Resource Strain (CARDIA) Difficulty of Paying Living Expenses: Not hard at all Food Insecurity: No Food Insecurity (06/02/2023) Hunger Screening Food Insecurity - Worry: Never True Food Insecurity - Inability: Never True Transportation Needs: No Transportation Needs (06/05/2022) PRAPARE - Transportation Lack of Transportation (Medical): No Lack of Transportation (Non-Medical): No Physical Activity: Insufficiently Active (06/05/2022) Exercise Vital Sign Days of Exercise per Week: 3 days Minutes of Exercise per Session: 30 min Stress: Stress Concern Present (06/05/2022) [employer] [place] [employer] - Occupational Stress Questionnaire Feeling of Stress : To some extent Social Connections: Unknown (06/05/2022) Social Connection and Isolation Panel [NHANES] Frequency of Communication with Friends and Family: Not on file Frequency of Social Gatherings with Friends and Family: Once a week Attends Bahai Services: More than 4 times per year Active Member of Clubs or Organizations: No Attends Club or Organization Meetings: More than 4 times per year Marital Status: Interpersonal Safety: Not At Risk (06/05/2022) Humiliation, Afraid, Rape, and Kick questionnaire Fear of Current or Ex-Partner: No Emotionally Abused: No Physically Abused: No Sexually Abused: No Review of Systems Constitutional: Negative for fever. HENT: Right ear congestion Respiratory: Negative for cough. Gastrointestinal: Negative for bowel incontinence, constipation and diarrhea. Genitourinary: Negative for bladder incontinence, difficulty urinating and frequency. Musculoskeletal: Positive for back pain. Skin: Negative. Neurological: Negative for tingling, weakness and numbness. Vital Signs: BP 119/79 Pulse 69 Resp 16 Ht 180.3 cm (5' 11 ) Wt 117 kg (258 lb) SpO2 100% BMI 35.98 kg/m Physical Exam: GENERAL - Healthy patient that appears stated age. HEENT - Normocephalic / Atraumatic, Extraoccular movements intact, trachea midline, thyroid within normal limits. CV - pulse regular, Warm extremities with appropriate color of nailbeds. RESP - No obvious wheezing, No Shortness of Breath, No overexertion response to exam maneuvers. COORDINATION - remains intact. PSYCH - Alert and Oriented x4, Attentive and appropriate, constitutionally normal, displays normal mood and affect per situation, answered questions appropriately during examination, demonstrated appropriate attention during discussion, demonstrated appropriate cognitive reasoning and understanding of the medical condition by asking appropriate questions regarding the diagnosis and risks/benefits/alternatives of treatment modalities. No obvious deficits in memory, reasoning, or intellect. Lumbar: SKIN - No rashes or bruising in the area of the patient s pain. LYMPH NODES - demonstrate no obvious enlargement. EXTREMITIES - Lower extremities are warm, with minimal edema and palpable pulses. No significant tenderness to palpation noted in the lumbar spine and paraspinal musculature. Mild pain is elicited with flexion, extension, and lateral rotation of the lumbar spine. Range of motion is not diminished with these motions. Facet palpation is negative for significant pain and facet loading maneuvers elicit only mild pain that is not concordant with the patient s normal pain complaints. STRENGTH - noted to be 5 out of 5 all muscle groups bilateral lower extremities including muscles involving hip flexion and abduction, knee flexion and extension, as well as foot dorsiflexion and plantarflexion. No notable atrophy, fasciculations or spasm. SENSORY - No notable sensory deficits in the bilateral lower extremities to touch or pinprick in all dermatomal distributions. Straight Leg Raise is negative bilaterally. Tenderness to palpation is noted over the Right SacroIliac Joint: Fabere sign (Jaswinder's Test) is significantly positive, as is compression and distraction of the sacroiliac joints, which is consistent with some of the patient's normal pain. Gait is normal. Assessment/Treatment Plan: Chris was seen today for back pain. Diagnoses and all orders for this visit: Disorder of sacrum - Case request operating room: INJECTION BLOCK SACROILIAC JOINT Right Sacroiliac Joint Injection - under fluoroscopy with the use of contrast dye (unless contraindicated) It is hopeful that the described procedure will provide symptomatic pain relief. It is felt to be medically necessary noting that the patient has tried and failed more conservative modalities of therapy and this is the next most appropriate step. The procedure was described in detail to the patient as well as the potential benefits of pain reduction alongside risks of the procedure and alternatives. Risks were described as including, but not limited to bleeding, infection, nerve damage, spinal cord injury, paralysis, stroke, dural puncture headache, and medication reaction. The patient expressed understanding regarding the risks and benefits and wishes to proceed. Diagnostic SI injections should provide information to confirm that the noted SI Joint arthropathy is the patient s most significant pain generator. If this provides significant but only temporary pain relief, the patient may in the future be a candidate for radiofrequency denervation of the SI joint to provide pain relief for approximately 1 year. Follow up 2 weeks after procedure The medications I have prescribed have been reviewed for medication interactions/contraindications and/or for upcoming procedures: continue current medication regimen without any changes. DISCUSSION: Treatment options discussed with patient and all questions answered to patient's satisfaction. Discussed the rules and regulations surrounding prescription of opioids and compliance at length. Failure to follow the rules and regulation will result in tapering and discontinuation of medications if applicable. Prescribed medication that requires intensive monitoring for toxicity We do not currently prescribe any controlled substance from this practice. It appears that the patient's previous pain is under adequate control with the previous procedure. At this point, we will continue to monitor these symptoms and turn our immediate attention to the more painful complaint that was discussed today. It does appear that is it the new primary pain complaint and the patient would likely benefit from a procedure as treatment for this complaint as well. The spine model was demonstrated and MRI was reviewed and used to explain the condition. Chronic conditions not treated during this visit that affected my overall medical decision making: Comorbidity- Obesity The patient does have a comorbid condition of obesity. This will be taken into account in that obesity will contribute to certain pain conditions. It can contribute to pain from degenerative disc disease as well as osteoarthritis of the joints. Many neuropathic symptoms are also amplified due to axial spine loading. Special benefits will also need to be given to procedures. Many procedures are technically more difficult in the light of severe obesity. I will also consider the possibility of undiagnosed obstructive sleep apnea (which often accompanies obesity) when prescribing any narcotic medications. I will weigh the risks and benefits and fully discuss them with the patient for these reasons. Comorbidity- Anticoagulation therapy The patient is currently being treated with an anticoagulant. For this reason, we will need to confer with the patients other physicians to determine if it is safe to discontinue this therapy for any planned procedure. If it is determined that discontinuation would be a significant risk, we will have to weigh the potential benefits to the procedure. It may be necessary to delay or defer the procedure altogether. However, if the patient feels the potential benefit outweighs the risk and is willing to assume the responsibility, we may elect to proceed while anticoagulated despite the increased risks of bleeding, hematoma formation, and possible paralysis. OARRS: Reviewed. Scribe Statement: Scribed for and in the presence of JERE GRIFFIN by Verenice Dunn CNA. Provider Statement: I, JERE GRIFFIN, personally performed the services described in the documentation, as scribed by Verenice Dunn CNA in my presence, and it is both accurate and complete. Verenice Dunn CNA 06/02/23 1007 JERE Griffin 06/02/23 1422 documented in this encounter [facility] 06-02-2023 Instructions Verenicejacob Dunn CNA - 06/02/2023 9:30 AM EST Facet Injection / Medial Branch Block (MBB) / Sacroiliac (SI) Joint Injection A facet injection and sacroiliac joint injection are injections of local anesthetic and steroid into a joint in the spine. A medial branch block is similar, but the medication is placed outside the joint space near the nerve that supplies the joint called the medial branch (steroid may or may not be used). You may require multiple injections depending upon how many joints are involved. How Long Will This Procedure Last? The extent and duration of pain relief may depend on the amount of inflammation and how many areas are involved. Other coexisting factors may be responsible for your pain. If your pain goes away for a short time, but then returns, you may be a candidate for radiofrequency ablation (RFA). Activity Be active. Attempt activities and movements that typically cause pain to see if it feels better while doing them. We will give you a pain diary. Please fill this out as directed by your nurse in pre-op. This will help your doctor determine the effectiveness of the injection, and how to proceed. Bring the pain diary with you to your follow-up appointment. Medications You should not take your pain medications for 4-6 hours before or after the injection in order to properly diagnose if the injection provides adequate relief. Resume your routine medications after your procedure. You may resume blood thinners per your regular schedule after the procedure. If you received sedation: If you received sedation for your procedure, you may feel sleepy or not yourself for several hours today. For the next 24 hours avoid activities that requires alertness or coordination. This includes: Driving or operating heavy machinery Using power tools Consuming alcohol Do not make important or complex decisions or sign legal documents in the next 24 hours. Other Instructions: If you feel severe pain at the injection site with swelling and redness, increased leg weakness, a fever of 101 or higher, headache (or worsening headache), changes in vision or urinary retention: Please call the office at , or have someone take you to the nearest emergency room. Tell the emergency room staff that you recently had a spine injection. A doctor must evaluate you for bleeding and injection complications. If you lose control over bowel, bladder, or legs: Go to the nearest emergency room. documented in this encounter [facility] Evaluation note Diagnosis Disorder of sacrum- Primary Disorders of sacrum Disorder of sacrum- Primary Disorders of sacrum Disorder of sacrum Disorders of sacrum [facility] Diagnosis Disorder of sacrum- Primary Disorders of sacrum Multiple vessel coronary artery disease Disorder of sacrum Disorders of sacrum [facility] Diagnosis Essential hypertension- Primary Unspecified essential hypertension Stage 3b chronic kidney disease (CMS-HCC) Gastroesophageal reflux disease without esophagitis Esophageal reflux Ascending aorta dilatation (CMS-HCC) Thoracic aneurysm without mention of rupture Obesity, morbid (CMS-HCC) Morbid obesity [facility] Diagnosis Encounter for pre-operative cardiovascular clearance- Primary History of ST elevation myocardial infarction (STEMI) S/P right coronary artery (RCA) stent placement Ischemic cardiomyopathy Other specified forms of chronic ischemic heart disease Essential hypertension Unspecified essential hypertension Ascending aorta dilatation (CMS-HCC) Thoracic aneurysm without mention of rupture [facility] Diagnosis Lumbosacral spondylosis without myelopathy- Primary [facility] Diagnosis Stage 3b chronic kidney disease (CMS-HCC) Essential hypertension Unspecified essential hypertension documented in this encounter [facility] [address] SystemInstructionsNot on filedocumented in this encounter [facility] System[facility] on filedocumented in this encounter [facility] [address] SystemInstructionsNot on filedocumented in this encounter [facility] [address] SystemInstructionsNot on filedocumented in [facility] encounter [facility] [address] SystemInstructionsNot on filedocumented in this encounter [facility] [address] [facility] Summary Purpose Family History No Family History Records FoundNo Family History Records FoundNo Family History Records FoundNo Family History Records FoundNo Family History Records FoundNo Family History Records Found Advance Directives No Advanced Directives Records FoundLatest Code Status on File Code Status Date Activated Date Inactivated Comments Full Code 11/29/2020 7:45 AM 11/29/2020 2:07 PM Code Status History Code Status Date Activated Date Inactivated Comments Full Code 10/05/2017 12:17 PM 10/06/2017 10:40 PM Latest Code Status on File Code Status Date Activated Date Inactivated Comments Full Code 11/29/2020 7:45 AM 11/29/2020 2:07 PM Code Status History Code Status Date Activated Date Inactivated Comments Full Code 10/05/2017 12:17 PM 10/06/2017 10:40 PM Reason for Referral Specialty Diagnoses / Procedures Referred By Contac t Referred To Contact Diagnoses Disorder of sacrum Procedures Case request operating room: INJECTION BLOCK SACROILIAC JOINT Chantelle Reyes, PA [address] [facility], [address] [place] [address] Referral ID Status Reason Start Date Expiration Date V isits Requested Visits Authorized [id number] Pending Review 06/02/2023 06/01/2024 1 1 Specialty Diagnoses / Procedures Referred By Contac t Referred To Contact Radiology Diagnoses Essential hypertension Ascending aorta dilatation ([facility]) Procedures CT angiogram chest Beronica Campbell MD [address] [place] [address] Referral ID Status Reason Start Date Expiration Date V isits Requested Visits Authorized [id number] Authorized 07/04/2023 07/03/2024 1 1 Additional Source Comments (unrecognized sect ion and content) No Status Records FoundNo Status Records FoundNo Status Records FoundNo Status Records FoundNo Status Records FoundNo Status Records Found INFORMATION SOURCE (unrecogn ized section and content) DATE CREATED AUTHOR 10/09/2021 [facility] DATE CREATED AUTHOR AUTHOR'S ORGANIZ ATION 11/10/2021 [facility] DATE CREATED AUTHOR AUTHOR'S ORGANIZ ATION 12/03/2021 [facility] DATE CREATED AUTHOR AUTHOR'S ORGANIZ ATION 06/13/2023 [facility] EPIC DATE CREATED AUTHOR AUTHOR'S ORGANIZ ATION 06/24/2023 [facility] DATE CREATED AUTHOR AUTHOR'S ORGANIZ ATION 07/17/2023 [facility] Reason for Visit (unrecogniz ed section and content) Reason Comments Back Pain Reason Comments Med Refill Reason Comments Hypertension Reason Comments Pre-op Exam OV F/U 1 YR NO TESTS L/S MS+++PRE OP ALSO EAR SURGERY DR QUINN NOT YET SCHED Reason Comments Back Pain Reason Onset Date Comments CT 07/08/2023 Care Teams (unrecognized sec tion and content) Animal Technician Relationship Specialty Start Date End Date Chris Richards DO [address] [place] [address] PCP - General Internal Medicine 03/02/17 Animal Technician Relationship Specialty Start Date End Date Chris Richards DO [address] [place] [address] PCP - General Internal Medicine 03/02/17 Animal Technician Relationship Specialty Start Date End Date Chris Richards DO [address] [place] [address] PCP - General Internal Medicine 03/02/17 Animal Technician Relationship Specialty Start Date End Date Chris Richards DO [address] [place] [address] PCP - General Internal Medicine 03/02/17 Animal Technician Relationship Specialty Start Date End Date Chris Richards DO [address] [facility] [address] PCP - General Internal Medicine 03/02/17 Animal Technician Relationship Specialty Start Date End Date Chris Richards DO [address] [facility] [address] PCP - General Internal Medicine 03/02/17 Animal Technician Relationship Specialty Start Date End Date Chris Richards DO Jeannette [address] [place] [address] PCP - General Internal Medicine 03/02/17 FOR RECORDS PERTAINING TO PATIENTS WHO ARE OR HAVE BEEN ENROLLED IN A CHEMICAL DEPENDENCY/SUBSTANCEABUSE PROGRAM, SOME INFORMATION MAY BE OMITTED. This clinical summary was aggregated from multiple sources. Caution should be exercised in using it in the provision of clinical care. This summary normalizes information from multiple sources, and as a consequence, information in this document may materially change the coding, format and clinical context of patient data. In addition, data may be omitted in some cases. CLINICAL DECISIONS SHOULD BE BASED ON THE PRIMARY CLINICAL RECORDS. [facility]. provides no warranty or guarantee of the accuracy or completeness of information in this document.
[2023-08-09] MEDS: LACTATED RINGER'S SOLUTION 1,000 ML 50 ML IV (07:51)
[2023-08-09] MEDS: OXYMETAZOLINE HCL 0.05% NASAL SPRAY 30 SPRAY NS (09:22)
--- NOTE | 2023-08-09 09:54 | PC.NURSE ---
No ear or nasal drainage noted
== END 2023-08-09 10:41 | disposition home or self-care (01) ==
PROVIDERS: PCP Internal Medicine; Visit Provider Otolaryngology
PROC: (CPT 31231; principal; 2023-08-09 08:30)
PROC: (CPT 31231; 2023-08-09 08:30)
DX: H69.81 Other specified disorders of Eustachian tube, right ear (principal); I25.2 Old myocardial infarction; I25.10 Atherosclerotic heart disease of native coronary artery without angina pectoris; H65.91 Unspecified nonsuppurative otitis media, right ear; H91.91 Unspecified hearing loss, right ear; F32.A Depression, unspecified; G47.30 Sleep apnea, unspecified; K21.9 Gastro-esophageal reflux disease without esophagitis; Z87.442 Personal history of urinary calculi; E78.00 Pure hypercholesterolemia, unspecified; I12.9 Hypertensive chronic kidney disease with stage 1 through stage 4 chronic kidney disease, or unspecified chronic kidney disease; N40.1 Benign prostatic hyperplasia with lower urinary tract symptoms; N13.8 Other obstructive and reflux uropathy; Z98.52 Vasectomy status; Z96.659 Presence of unspecified artificial knee joint; Z95.5 Presence of coronary angioplasty implant and graft; Z87.891 Personal history of nicotine dependence; M48.062 Spinal stenosis, lumbar region with neurogenic claudication; N18.30 Chronic kidney disease, stage 3 unspecified; E66.01 Morbid (severe) obesity due to excess calories; Z68.35 Body mass index [BMI] 35.0-35.9, adult
CPT/HCPCS: 31231; 69436; 36415; J1094; J2704